=== PATIENT | female | born 1945 | race Caucasian/White ===

== ENCOUNTER 2018-03-05 18:02 | Emergency (ER) | payer MEDICARE, OTHER, SELFPAY ==
[2018-03-05 18:08] VITALS: BP 92/60; PULSE 88; RESP 22; TEMP 37.1; O2SAT 93; BMI 22.7
--- NOTE | 2018-03-05 18:29 | ED.DENTAL ---
HPI - Dental/Oral <MAGALI Collazo - Last Filed: 03/05/18 22:09> General Chief complaint: Dental/Oral Stated complaint: UNABLE TO EAT, THROAT/MOUTH PAIN, LOSING WEIGHT Time Seen by Provider: 03/05/18 18:24 Source: patient Mode of arrival: ambulatory Limitations: no limitations History of Present Illness HPI Narrative: 72-year-old female history of asthma is a nonsmoker here for complaint of having pain into her mouth over the past 3-4 weeks. She also reports having nausea and vomiting frequently over the same timeframe. She was seen at her primary care provider office for this a couple times and was also seen in the emergency room at [facility] for this. She was seen a few days ago at [facility] therapy placed her on nystatin treated her for stomatitis. She reports that her symptoms have not resolved. She reports that she has not been able to tolerate p.o. intake well she states she has lost 10 lb over the past several weeks. She denies any abdominal pain. She denies any fevers or chills. She is ambulatory into the emergency room. Related Data Previous Rx's Medication Instructions Recorded ondansetron 4 mg PO TID PRN #12 tab 03/05/18 Allergies Allergy/AdvReac Type Severity Reaction Status Date / Time Tetanus Vaccines and Toxoid Allergy Severe SWELLING Verified 03/05/18 18:07 [TETANUS VACCINES & TOXOID] AT THE SITE [place] [address] [From [facility]] Allergy Unknown CAUSES Verified 03/05/18 18:07 PAIN, SWELLING, NSTABILITY Review of Systems <MAGALI Collazo - Last Filed: 03/05/18 22:09> Constitutional Denies chills, Denies fever(s), Denies lethargy and Denies weakness Eyes Denies change in vision, Denies eye discharge, Denies irritation and Denies loss of vision ENT Ears, Nose, Mouth, and Throat: Denies change in voice, Denies neck pain and Denies sore throat Comments: Mouth pain Cardiovascular Denies chest pain, Denies irregular heart rhythm, Denies lightheadedness, Denies palpitations, Denies dyspnea, Denies dyspnea on exertion and Denies orthopnea Respiratory Denies cough, Denies dyspnea, Denies dyspnea on exertion and Denies wheezing Gastrointestinal Gastrointestinal: Denies abdominal pain, Denies change in bowel habits, Denies diarrhea, Reports nausea and Reports vomiting Genitourinary Denies hematuria, Denies flank pain, Denies urinary incontinence and Denies urinary urgency Musculoskeletal Denies neck pain Integumentary/Breasts Denies pruritus, Denies erythema, Denies rash and Denies wounds Neurologic Denies confusion, Denies loss of vision and Denies weakness Psychiatric Denies anxiety, Denies confusion, Denies depression, Denies homicidal ideation and Denies suicidal ideation Endocrine Denies palpitations Hematologic/Lymphatic Denies easy bruising Allergic/Immunologic Denies wheezing Exam <MAGALI Collazo - Last Filed: 03/05/18 22:09> Initial Vital Signs Initial Vital Signs: Vital Signs Temperature 98.7 F 03/05/18 18:08 Pulse Rate 88 03/05/18 18:08 Respiratory Rate 22 03/05/18 18:08 Blood Pressure 92/60 03/05/18 18:08 Pulse Oximetry 93 03/05/18 18:08 Const General: cooperative and well developed Nutritional Appearance: well nourished Orientation: alert, awake, oriented x3 and not confused HENWA Mouth: oral mucosae normal and moist mucous membranes Throat: posterior oropharynx normal Eyes Conjunctivae: conjunctivae normal Sclera: sclerae normal Pupils: PERRL EOM: EOM intact bilaterally GI Inspection: non-distended Palpation: soft, no hepatosplenomegaly, No guarding, No pulsatile mass and No tender Auscultation: normal bowel sounds Skin General: no rashes or lesions noted, No jaundice and No petechiae <Jese Harrison DO - Last Filed: 03/06/18 05:56> Initial Vital Signs Initial Vital Signs: Vital Signs Temperature 98.7 F 03/05/18 18:08 Pulse Rate 88 03/05/18 18:08 Respiratory Rate 22 03/05/18 18:08 Blood Pressure 92/60 03/05/18 18:08 Pulse Oximetry 93 03/05/18 18:08 Course <MAGALI Collazo - Last Filed: 03/05/18 22:09> Orders Ordered: Discontinued Medications Sodium Chloride (Normal Saline 0.9%) 1,000 mls @ 1,000 mls/hr IV BOLUS ONE Stop: 03/05/18 19:57 Last Infusion: 03/05/18 20:42 Dose: 0 mls/hr Admin: 03/05/18 19:24 Dose: 1,000 mls/hr Ondansetron HCl (Zofran) 4 mg IV NOW ONE Stop: 03/05/18 18:59 Last Admin: 03/05/18 19:24 Dose: 4 mg Vital Signs - 8 hr 03/05/18 22:00 Pulse Rate 62 Respiratory Rate 16 Blood Pressure 119/54 L Pulse Oximetry 99 <Jese Harrison DO - Last Filed: 03/06/18 05:56> Orders Ordered: Discontinued Medications Sodium Chloride (Normal Saline 0.9%) 1,000 mls @ 1,000 mls/hr IV BOLUS ONE Stop: 03/05/18 19:57 Last Infusion: 03/05/18 20:42 Dose: 0 mls/hr Admin: 03/05/18 19:24 Dose: 1,000 mls/hr Ondansetron HCl (Zofran) 4 mg IV NOW ONE Stop: 03/05/18 18:59 Last Admin: 03/05/18 19:24 Dose: 4 mg Vital Signs - 8 hr 03/05/18 22:00 Pulse Rate 62 Respiratory Rate 16 Blood Pressure 119/54 L Pulse Oximetry 99 MDM - Dental/Oral <MAGALI Collazo - Last Filed: 03/05/18 22:09> Lab Data Result diagrams: 03/05/18 19:20 03/05/18 19:20 Lab Results 03/05/18 03/05/18 03/05/18 Range/Units 19:20 19:20 19:20 WBC 9.1 (4.5-11.0) X10^3/uL RBC 5.21 H (4.0-5.2) X10^6/uL Hgb 14.6 (12.0-16.0) g/dL Hct 43.9 (36-46) % MCV 84.4 (80-100) fL MCH 28.1 (26-34) PG MCHC 33.3 (30-36) % RDW 13.1 (11.6-14.8) % Plt Count 305 (150-400) X10^3/uL Neut % (Auto) 53.2 (50-75) % Lymph % (Auto) 34.9 (25-40) % [place] % (Auto) 10.5 (3-14) % Eos % (Auto) 0.3 L (2-4) % Baso % (Auto) 1.1 (0-2) % Neut # (Auto) 4900 (8596-3131) /uL Sodium 134 L (137-145) mmol/L Potassium 4.1 (3.4-5.1) mmol/L Chloride 95 L (98-107) mmol/L Carbon Dioxide 25 (22-32) mmol/L BUN 39 H (7-17) mg/dL Creatinine 1.10 H (0.52-1.04) mg/dL Estimated GFR 49.0 L (>60) mL/min BUN/Creatinine Ratio 35.5 H (6-22) Glucose 92 (80-110) mg/dL Calcium 10.6 H (8.4-10.2) mg/dL Total Bilirubin 0.8 (0.2-1.3) mg/dL AST 20 (14-36) IU/L ALT 27 (9-52) IU/L Alkaline Phosphatase 52 (38-126) U/L Total Protein 7.3 (6.3-8.2) g/dL Albumin 4.4 (3.5-5.0) g/dL Globulin 2.9 (1.7-4.1) g/dL Albumin/Globulin Ratio 1.5 (1.0-2.8) Procalcitonin < 0.50 (<0.5) ng/mL Influenza A & B (PCR) (Negative) 03/05/18 Range/Units 19:20 WBC (4.5-11.0) X10^3/uL RBC (4.0-5.2) X10^6/uL Hgb (12.0-16.0) g/dL Hct (36-46) % MCV (80-100) fL MCH (26-34) PG MCHC (30-36) % RDW (11.6-14.8) % Plt Count (150-400) X10^3/uL Neut % (Auto) (50-75) % Lymph % (Auto) (25-40) % [place] % (Auto) (3-14) % Eos % (Auto) (2-4) % Baso % (Auto) (0-2) % Neut # (Auto) (9869-6574) /uL Sodium (137-145) mmol/L Potassium (3.4-5.1) mmol/L Chloride (98-107) mmol/L Carbon Dioxide (22-32) mmol/L BUN (7-17) mg/dL Creatinine (0.52-1.04) mg/dL Estimated GFR (>60) mL/min BUN/Creatinine Ratio (6-22) Glucose (80-110) mg/dL Calcium (8.4-10.2) mg/dL Total Bilirubin (0.2-1.3) mg/dL AST (14-36) IU/L ALT (9-52) IU/L Alkaline Phosphatase (38-126) U/L Total Protein (6.3-8.2) g/dL Albumin (3.5-5.0) g/dL Globulin (1.7-4.1) g/dL Albumin/Globulin Ratio (1.0-2.8) Procalcitonin (<0.5) ng/mL Influenza A & B (PCR) Negative (Negative) Urine Dip Bedside Urine Glucose Negative Bedside Urine Bilirubin - Negative Bedside Urine Ketone +/- 5 Urine Specific Kyle 1.015 Bedside Urine Occult Blood - Negative Bedside Urine pH 6.0 Bedside Urine Protein - Negative Bedside Urine Urobilinogen - Negative Bedside Urine Nitrite - Negative Bedside Urine Leukocytes - Negative Esterase MDM Narrative Medical decision making narrative: CBC was obtained was negative for any acute findings. Chemistry shows decreased GFR of 49. And slightly increased creatinine of 1.1. Sodium is slightly decreased at 134 and chlorides are slightly decreased at 95. Influenza swab was obtained and was negative for any acute findings. Urine dip was negative for any acute findings. Discussed case with Dr. Galdamez who was on-call for Dr. Vinson. Full follow up with patient in the next couple days for re-evaluation. [id number] Cepacol as needed for discomfort to the mouth. She is prescribed ondansetron to help with the nausea vomiting. She was able to tolerate p.o. fluid while in the emergency room after the ondansetron. She has no discomfort at this time. For any worsening symptoms return emergency room. <Jese Harrison DO - Last Filed: 03/06/18 05:56> Lab Data Lab Results 03/05/18 03/05/18 03/05/18 Range/Units 19:20 19:20 19:20 WBC 9.1 (4.5-11.0) X10^3/uL RBC 5.21 H (4.0-5.2) X10^6/uL Hgb 14.6 (12.0-16.0) g/dL Hct 43.9 (36-46) % MCV 84.4 (80-100) fL MCH 28.1 (26-34) PG MCHC 33.3 (30-36) % RDW 13.1 (11.6-14.8) % Plt Count 305 (150-400) X10^3/uL Neut % (Auto) 53.2 (50-75) % Lymph % (Auto) 34.9 (25-40) % [place] % (Auto) 10.5 (3-14) % Eos % (Auto) 0.3 L (2-4) % Baso % (Auto) 1.1 (0-2) % Neut # (Auto) 4900 (4313-3051) /uL Sodium 134 L (137-145) mmol/L Potassium 4.1 (3.4-5.1) mmol/L Chloride 95 L (98-107) mmol/L Carbon Dioxide 25 (22-32) mmol/L BUN 39 H (7-17) mg/dL Creatinine 1.10 H (0.52-1.04) mg/dL Estimated GFR 49.0 L (>60) mL/min BUN/Creatinine Ratio 35.5 H (6-22) Glucose 92 (80-110) mg/dL Calcium 10.6 H (8.4-10.2) mg/dL Total Bilirubin 0.8 (0.2-1.3) mg/dL AST 20 (14-36) IU/L ALT 27 (9-52) IU/L Alkaline Phosphatase 52 (38-126) U/L Total Protein 7.3 (6.3-8.2) g/dL Albumin 4.4 (3.5-5.0) g/dL Globulin 2.9 (1.7-4.1) g/dL Albumin/Globulin Ratio 1.5 (1.0-2.8) Procalcitonin < 0.50 (<0.5) ng/mL Influenza A & B (PCR) (Negative) 03/05/18 Range/Units 19:20 WBC (4.5-11.0) X10^3/uL RBC (4.0-5.2) X10^6/uL Hgb (12.0-16.0) g/dL Hct (36-46) % MCV (80-100) fL MCH (26-34) PG MCHC (30-36) % RDW (11.6-14.8) % Plt Count (150-400) X10^3/uL Neut % (Auto) (50-75) % Lymph % (Auto) (25-40) % [place] % (Auto) (3-14) % Eos % (Auto) (2-4) % Baso % (Auto) (0-2) % Neut # (Auto) (3958-1359) /uL Sodium (137-145) mmol/L Potassium (3.4-5.1) mmol/L Chloride (98-107) mmol/L Carbon Dioxide (22-32) mmol/L BUN (7-17) mg/dL Creatinine (0.52-1.04) mg/dL Estimated GFR (>60) mL/min BUN/Creatinine Ratio (6-22) Glucose (80-110) mg/dL Calcium (8.4-10.2) mg/dL Total Bilirubin (0.2-1.3) mg/dL AST (14-36) IU/L ALT (9-52) IU/L Alkaline Phosphatase (38-126) U/L Total Protein (6.3-8.2) g/dL Albumin (3.5-5.0) g/dL Globulin (1.7-4.1) g/dL Albumin/Globulin Ratio (1.0-2.8) Procalcitonin (<0.5) ng/mL Influenza A & B (PCR) Negative (Negative) Urine Dip Bedside Urine Glucose Negative Bedside Urine Bilirubin - Negative Bedside Urine Ketone +/- 5 Urine Specific Kyle 1.015 Bedside Urine Occult Blood - Negative Bedside Urine pH 6.0 Bedside Urine Protein - Negative Bedside Urine Urobilinogen - Negative Bedside Urine Nitrite - Negative Bedside Urine Leukocytes - Negative Esterase Discharge Plan Departure Patient Disposition: Home Clinical Impression: Acute pain of mouth Discharge Date/Time: 03/05/18 22:07 Interventions: ED Discharge Assessment Last Done: 03/05/18 22:00 Instructions: DI for Mouth Pain Activity Restrictions/Additional Instructions: Laboratory results today show decreased in kidney function this is most likely due to not drinking enough fluids. Other laboratory results today were unremarkable. Discussed case with your primary care office will follow up with you on Wednesday for further evaluation. Use Cepacol lozenges as needed for discomfort to the mouth. Use ondansetron as needed for nausea vomiting to help with hydration. Plenty of fluids. Slowly advance diet as tolerated. Call your primary care office on Wednesday morning to schedule follow-up appointment that day. For any worsening symptoms return to the emergency room. Prescriptions: New ondansetron 4 mg tablet,disintegrating 4 mg PO TID PRN (Reason: nausea and vomiting) Qty: 12 RF: 0 Referrals: Nicky Vinson DO [Primary Care Provider] - <Jese Harrison DO - Last Filed: 03/06/18 05:56> [facility] Attending [facility] Attestation: I was immediately available in the department for consultation. Documentation has been reviewed. I agree with assessment and plan.
[2018-03-05 19:01] VITALS: BP 113/52; PULSE 65; RESP 20; O2SAT 100
[2018-03-05] MEDS: SODIUM CHLORIDE 0.9% 1,000 ML 1000 ML IV (19:24)
[2018-03-05] MEDS: ONDANSETRON 4 MG/2 ML INJ IV (19:24)
[2018-03-05 19:30] LABS: Add Manual Diff / Slide Review NO; Basophils Percent Auto 1.1 % (0-2); Eosinophils Percent Auto 0.3 % (2-4); Hematocrit 43.9 % (36-46); Hemoglobin 14.6 g/dL (12.0-16.0); Lymphocytes Percent Auto 34.9 % (25-40); Mean Corpuscular HGB Conc 33.3 % (30-36); Mean Corpuscular Hemoglobin 28.1 PG (26-34); Mean Corpuscular Volume 84.4 fL (80-100); Monocytes Percent Auto 10.5 % (3-14); Neutrophils Absolute Auto 4900 /uL (3000-5900); Neutrophils Percent Auto 53.2 % (50-75); Platelet Count 305 X10^3/uL (150-400); Red Blood Cell Count 5.21 X10^6/uL (4.0-5.2); Red Cell Distribution Width 13.1 % (11.6-14.8); White Blood Cell Count 9.1 X10^3/uL (4.5-11.0)
[2018-03-05 19:42] LABS: Alanine Aminotransferase 27 IU/L (9-52); Albumin 4.4 g/dL (3.5-5.0); Albumin Globulin Ratio 1.5 (1.0-2.8); Alkaline Phosphatase 52 U/L (38-126); Aspartate Aminotransferase 20 IU/L (14-36); BUN Creatinine Ratio 35.5 (6-22); Bilirubin Total 0.8 mg/dL (0.2-1.3); Blood Urea Nitrogen 39 mg/dL (7-17); Calcium 10.6 mg/dL (8.4-10.2); Carbon Dioxide 25 mmol/L (22-32); Chloride 95 mmol/L (98-107); Globulin 2.9 g/dL (1.7-4.1); Glucose 92 mg/dL (80-110); HEMOLYSIS < 15 (0-50); Potassium 4.1 mmol/L (3.4-5.1); Sodium 134 mmol/L (137-145); Total Protein 7.3 g/dL (6.3-8.2)
[2018-03-05 19:50] LABS: Influenza A and B by PCR Rapid Negative (Negative)
[2018-03-05 20:00] VITALS: BP 115/49; PULSE 61; O2SAT 100
[2018-03-05 20:11] LABS: Procalcitonin < 0.50 ng/mL (<0.5)
[2018-03-05 21:00] VITALS: BP 119/54; PULSE 66; O2SAT 100
--- NOTE | 2018-03-05 21:24 | PC.NURSE ---
Pt tolerated 8 oz of grape juice
[2018-03-05 22:00] VITALS: BP 119/54; PULSE 62; RESP 16; O2SAT 99
== END 2018-03-05 22:07 | disposition home or self-care (01) ==
PROVIDERS: Emergency Provider Nurse Practitioner Family; PCP Family Medicine
DX: K13.79 Other lesions of oral mucosa (principal)
CPT/HCPCS: 36591; 80053; 81003; 84145; 85025; 87400; 96361; 96374; 99283; 99284; J2405

== ENCOUNTER 2018-05-20 14:07 | Observation (INO) | payer MEDICARE, OTHER, SELFPAY ==
[2018-05-20 14:40] VITALS: BP 109/43; PULSE 82; RESP 20; TEMP 36.8; O2SAT 98; BMI 30.5
[2018-05-20 15:12] LABS: Prothrombin Time 11.9 SECONDS (10.1-12.7)
[2018-05-20 15:14] LABS: PTT Partial Thromboplastin Tim 26 SECONDS (26.4-36.2)
[2018-05-20 15:15] LABS: Add Manual Diff / Slide Review NO; Basophils Absolute Auto 0 /uL (0-100); Basophils Percent Auto 0.2 % (0-2); Eosinophils Absolute Auto 0 /uL (0-450); Eosinophils Percent Auto 0.1 % (2-4); Hematocrit 40.9 % (36-46); Hemoglobin 13.7 g/dL (12.0-16.0); Lymphocytes Absolute Auto 1500 /uL (1100-4500); Lymphocytes Percent Auto 7.5 % (25-40); Mean Corpuscular HGB Conc 33.4 % (30-36); Mean Corpuscular Hemoglobin 28.8 PG (26-34); Mean Corpuscular Volume 86.3 fL (80-100); Monocytes Absolute Auto 1600 /uL (0-900); Monocytes Percent Auto 8.2 % (3-14); Neutrophils Absolute Auto 16400 /uL (1500-7000); Platelet Count 233 X10^3/uL (150-400); Red Blood Cell Count 4.74 X10^6/uL (4.0-5.2); Red Cell Distribution Width 14.2 % (11.6-14.8); White Blood Cell Count 19.5 X10^3/uL (4.5-11.0)
[2018-05-20 15:16] LABS: Alanine Aminotransferase 39 IU/L (9-52); Albumin Globulin Ratio 1.5 (1.0-2.8); Alkaline Phosphatase 95 U/L (38-126); Aspartate Aminotransferase 32 IU/L (14-36); Bilirubin Total 0.9 mg/dL (0.2-1.3); Blood Urea Nitrogen 21 mg/dL (7-17); Carbon Dioxide 24 mmol/L (22-32); Chloride 96 mmol/L (98-107); Estimated Glomerular Filt Rate 54.5 mL/min (>60); Globulin 2.7 g/dL (1.7-4.1); Glucose 128 mg/dL (80-110); HEMOLYSIS < 15 (0-50); Lipase 20 U/L (23-300); Potassium 3.8 mmol/L (3.4-5.1); Sodium 134 mmol/L (137-145); Total Protein 6.7 g/dL (6.3-8.2)
[2018-05-20] MEDS: ONDANSETRON 4 MG/2 ML INJ IV (15:16)
--- NOTE | 2018-05-20 15:21 | DI.RAD.S_ITS ---
PROCEDURE: XR ACUTE ABDOMEN SERIES INDICATIONS: abd pain, N/V/D TECHNIQUE: One view chest and two views of the abdomen were acquired. COMPARISON: None. FINDINGS: Surgical changes and devices: None. Chest: The cardiac contours are within normal limits. The aorta demonstrates calcification and tortuosity.Heart size is normal. No pleural effusions. No pneumoperitoneum. Abdomen: Bowel gas pattern is normal. No suspicious calcifications. Visualized solid organ contours appear normal. Bones: No suspicious bony lesions. Age-appropriate bony degenerative changes are seen. IMPRESSION: A nonobstructive bowel gas pattern is seen. As clinically appropriate, please consider a repeat plain film study or a dedicated CT of the abdomen and pelvis, if the patient's symptoms persist or worsen. Dictated by: Vladimir Peraza M.D. on 05/20/2018 at 14:44 Approved by: Vladimir Peraza M.D. on 05/20/2018 at 14:45
[2018-05-20] MEDS: SODIUM CHLORIDE 0.9% 1,000 ML 1000 ML IV (15:47)
--- NOTE | 2018-05-20 16:28 | ED.NAVMDI ---
HPI - Nausea/Vomiting/Diarrhea <MAGALI Collazo - Last Filed: 05/20/18 22:14> General Chief complaint: Nausea/Vomiting/Diarrhea Stated complaint: N/V/D Time Seen by Provider: 05/20/18 16:21 Source: patient Mode of arrival: ambulatory Limitations: no limitations History of Present Illness HPI Narrative: 73-year-old female with history of hypertension and hypo thyroidism here for complaint of having nausea vomiting and diarrhea that started yesterday. She reports that she had several episodes of vomiting last night and also several episodes of diarrhea. She reports that during her episodes of vomiting she had a few episodes of syncopal episodes where she lost unconsciousness for a few months she denies any head injury. No fevers or chills. She denies any contacts or family having same symptoms. She states that her diarrhea has had blood in it. Last diarrhea was last night. She denies any diarrhea today. She denies any recent nausea and vomiting. She was able to tolerate some fluids today. She reports generalized abdominal discomfort. She denies any flank pain. She denies any urinary symptoms. MD complaint: vomiting and diarrhea Related Data Home Medications Medication Instructions Recorded Confirmed albuterol sulfate [ProAir HFA] 1 puff INHALATION PRN PRN 05/20/18 05/20/18 cholecalciferol (vitamin D3) 2,000 unit PO DAILY 05/20/18 05/20/18 [Vitamin D3] diltiazem HCl 180 mg PO BID 05/20/18 05/20/18 fluticasone-salmeterol [Advair 1 puff INHALATION BID PRN 05/20/18 05/20/18 Diskus] lisinopril-hydrochlorothiazide 1 tab PO DAILY 05/20/18 05/20/18 loratadine 10 mg PO DAILY 05/20/18 05/20/18 montelukast 10 mg PO QPM 05/20/18 05/20/18 naproxen 500 mg PO BID 05/20/18 05/20/18 simvastatin 20 mg PO DAILY 05/20/18 05/20/18 Allergies Allergy/AdvReac Type Severity Reaction Status Date / Time Tetanus Vaccines and Toxoid Allergy Severe SWELLING Verified 03/05/18 18:07 [TETANUS VACCINES & TOXOID] AT THE SITE kira G-Fred 20 [From [facility]] Allergy Unknown CAUSES Verified 03/05/18 18:07 PAIN, SWELLING, NSTABILITY Review of Systems <MAGALI Collazo - Last Filed: 05/20/18 22:14> Constitutional Denies chills, Denies fatigue, Denies fever(s), Denies lethargy and Denies weakness Eyes Denies change in vision, Denies eye discharge, Denies irritation and Denies loss of vision ENT Ears, Nose, Mouth, and Throat: Denies change in voice, Denies neck pain and Denies sore throat Cardiovascular Reports syncope, Denies dyspnea and Denies dyspnea on exertion Respiratory Denies cough, Denies dyspnea, Denies dyspnea on exertion and Denies wheezing Gastrointestinal Gastrointestinal: Reports abdominal pain, Reports diarrhea, Reports nausea and Reports vomiting Genitourinary Denies hematuria, Denies flank pain, Denies urinary incontinence and Denies urinary urgency Musculoskeletal Denies neck pain Integumentary/Breasts Denies pruritus, Denies erythema, Denies rash and Denies wounds Neurologic Denies confusion, Reports syncope, Denies loss of vision and Denies weakness Psychiatric Denies anxiety, Denies confusion, Denies depression, Denies homicidal ideation and Denies suicidal ideation Endocrine Denies fatigue and Denies flushing Hematologic/Lymphatic Denies easy bruising Allergic/Immunologic Denies wheezing PFSH <MAGALI Collazo - Last Filed: 05/20/18 22:14> Social History household members: spouse and family Smoking Status: Never smoker alcohol intake: never Exam <MAGALI Collazo - Last Filed: 05/20/18 22:14> Initial Vital Signs Initial Vital Signs: Vital Signs Temperature 98.2 F 05/20/18 14:40 Pulse Rate 82 05/20/18 14:40 Respiratory Rate 20 05/20/18 14:40 Blood Pressure 109/43 L 05/20/18 14:40 Pulse Oximetry 98 05/20/18 14:40 Const General: cooperative and well developed Nutritional Appearance: well nourished Orientation: alert, awake, oriented x3 and not confused HENMT Mouth: oral mucosae normal and moist mucous membranes Eyes Conjunctivae: conjunctivae normal Sclera: sclerae normal Pupils: PERRL EOM: EOM intact bilaterally Resp Effort & Inspection: normal respiratory effort, able to speak in complete sentences, no respiratory distress and no use of accessory muscles Auscultation: clear to auscultation bilaterally, no rales, no rhonchi and no wheezes Cardio Rate: regular rate Rhythm: regular rhythm Heart Sounds: no click, no gallops, no murmurs and no rubs GI Inspection: non-distended Palpation: soft, no hepatosplenomegaly, No guarding, No pulsatile mass and tender ( Generalized tenderness) Auscultation: normal bowel sounds General: No CVA tenderness Skin General: no rashes or lesions noted, No jaundice and No petechiae Neuro General: alert, oriented x3, gait normal and no focal motor deficits Speech: speech normal <Hu Sanchez DO - Last Filed: 05/20/18 23:32> Initial Vital Signs Initial Vital Signs: Vital Signs Temperature 98.2 F 05/20/18 14:40 Pulse Rate 82 05/20/18 14:40 Respiratory Rate 20 05/20/18 14:40 Blood Pressure 109/43 L 05/20/18 14:40 Pulse Oximetry 98 05/20/18 14:40 Course <MAGALI Collazo - Last Filed: 05/20/18 22:14> Orders Ordered: ED Orders 05/20/18 14:45 EKG-12 Lead Stat 05/20/18 14:55 Complete Blood Count AUTO DIFF Stat Comprehensive Metabolic Panel Stat Lipase Stat Partial Thromboplastin Time Stat Prothrombin Time INR Stat Troponin & CK Cardiac Panel Stat 05/20/18 15:21 XR acute abdomen series Stat 05/20/18 16:38 CT abdomen pelvis w con Stat CT head/brain wo con Stat 05/20/18 16:42 GI Panel (Film Array) Stat 05/20/18 20:22 Consult to Discharge Planning Routine 05/21/18 06:00 Basic Metabolic Panel DAILY Magnesium DAILY 05/22/18 06:00 Basic Metabolic Panel DAILY Acetaminophen (Tylenol) 650 mg PO Q6HR PRN PRN Reason: As Needed for Fever/Mild Pain Sodium Chloride (Normal Saline 0.9%) 1,000 mls @ 1,000 mls/hr IV BOLUS PRN PRN Reason: Fluid replacement Last Infusion: 05/20/18 17:01 Dose: 0 mls/hr Admin: 05/20/18 15:47 Dose: 1,000 mls/hr Ciprofloxacin (Cipro) 400 mg in 200 mls @ 200 mls/hr IV NOW [facility] Last Infusion: 05/20/18 20:42 Dose: 0 mls/hr Admin: 05/20/18 19:49 Dose: 200 mls/hr Metronidazole (Flagyl) 500 mg in 100 mls @ 100 mls/hr IV Q8H [facility] Last Admin: 05/20/18 21:55 Dose: 100 mls/hr Sodium Chloride (Normal Saline 0.9%) 1,000 mls @ 100 mls/hr IV CONT [facility] Last Admin: 05/20/18 21:55 Dose: 100 mls/hr Ondansetron HCl (Zofran) 4 mg IV Q8HR PRN PRN Reason: Nausea And Vomiting Discontinued Medications Ondansetron HCl (Zofran) 4 mg IV NOW ONE Stop: 05/20/18 15:15 Last Admin: 05/20/18 15:16 Dose: 4 mg Vital Signs - 8 hr 05/20/18 20:25 05/20/18 20:34 05/20/18 20:50 Temperature 98.5 F Pulse Rate 80 87 81 Respiratory Rate 23 18 18 Blood Pressure 125/60 123/61 Blood Pressure [Right Arm] 125/58 L Pulse Oximetry 91 98 97 05/20/18 22:06 Temperature Pulse Rate Respiratory Rate Blood Pressure Blood Pressure [Right Arm] Pulse Oximetry 95 <Hu Sanchez DO - Last Filed: 05/20/18 23:32> Orders Ordered: ED Orders 05/20/18 14:45 EKG-12 Lead Stat 05/20/18 14:55 Complete Blood Count AUTO DIFF Stat Comprehensive Metabolic Panel Stat Lipase Stat Partial Thromboplastin Time Stat Prothrombin Time INR Stat Troponin & CK Cardiac Panel Stat 05/20/18 15:21 XR acute abdomen series Stat 05/20/18 16:38 CT abdomen pelvis w con Stat CT head/brain wo con Stat 05/20/18 16:42 GI Panel (Film Array) Stat 05/20/18 20:22 Consult to Discharge Planning Routine 05/21/18 06:00 Basic Metabolic Panel DAILY Magnesium DAILY 05/22/18 06:00 Basic Metabolic Panel DAILY Acetaminophen (Tylenol) 650 mg PO Q6HR PRN PRN Reason: As Needed for Fever/Mild Pain Sodium Chloride (Normal Saline 0.9%) 1,000 mls @ 1,000 mls/hr IV BOLUS PRN PRN Reason: Fluid replacement Last Infusion: 05/20/18 17:01 Dose: 0 mls/hr Admin: 05/20/18 15:47 Dose: 1,000 mls/hr Ciprofloxacin (Cipro) 400 mg in 200 mls @ 200 mls/hr IV NOW [facility] Last Infusion: 05/20/18 20:42 Dose: 0 mls/hr Admin: 05/20/18 19:49 Dose: 200 mls/hr Metronidazole (Flagyl) 500 mg in 100 mls @ 100 mls/hr IV Q8H [facility] Last Admin: 05/20/18 21:55 Dose: 100 mls/hr Sodium Chloride (Normal Saline 0.9%) 1,000 mls @ 100 mls/hr IV CONT [facility] Last Admin: 05/20/18 21:55 Dose: 100 mls/hr Ondansetron HCl (Zofran) 4 mg IV Q8HR PRN PRN Reason: Nausea And Vomiting Discontinued Medications Ondansetron HCl (Zofran) 4 mg IV NOW ONE Stop: 05/20/18 15:15 Last Admin: 05/20/18 15:16 Dose: 4 mg Vital Signs - 8 hr 05/20/18 20:25 05/20/18 20:34 05/20/18 20:50 Temperature 98.5 F Pulse Rate 80 87 81 Respiratory Rate 23 18 18 Blood Pressure 125/60 123/61 Blood Pressure [Right Arm] 125/58 L Pulse Oximetry 91 98 97 05/20/18 22:06 Temperature Pulse Rate Respiratory Rate Blood Pressure Blood Pressure [Right Arm] Pulse Oximetry 95 MDM - Nausea/Vomiting/Diarrhea <MAGALI Collazo - Last Filed: 05/20/18 22:14> Lab Data Result diagrams: 05/20/18 14:55 05/20/18 14:55 Lab Results 05/20/18 05/20/18 05/20/18 Range/Units 14:55 14:55 14:55 WBC 19.5 H (4.5-11.0) X10^3/uL RBC 4.74 (4.0-5.2) X10^6/uL Hgb 13.7 (12.0-16.0) g/dL Hct 40.9 (36-46) % MCV 86.3 (80-100) fL MCH 28.8 (26-34) PG MCHC 33.4 (30-36) % RDW 14.2 (11.6-14.8) % Plt Count 233 (150-400) X10^3/uL Neut % (Auto) 84.0 H (50-75) % Lymph % (Auto) 7.5 L (25-40) % [place] % (Auto) 8.2 (3-14) % Eos % (Auto) 0.1 L (2-4) % Baso % (Auto) 0.2 (0-2) % Neut # (Auto) 79174 H (2323-8390) /uL Lymph # (Auto) 1500 (5389-5175) /uL Austin # (Auto) 1600 H (0-900) /uL Eos # (Auto) 0 (0-450) /uL Baso # (Auto) 0 (0-100) /uL PT 11.9 (10.1-12.7) SECONDS INR 1.0 (0.9-1.3) APTT 26 L (26.4-36.2) SECONDS Sodium 134 L (137-145) mmol/L Potassium 3.8 (3.4-5.1) mmol/L Chloride 96 L (98-107) mmol/L Carbon Dioxide 24 (22-32) mmol/L BUN 21 H (7-17) mg/dL Creatinine 1.00 (0.52-1.04) mg/dL Estimated GFR 54.5 L (>60) mL/min BUN/Creatinine Ratio 21.0 (6-22) Glucose 128 H (80-110) mg/dL Calcium 10.0 (8.4-10.2) mg/dL Total Bilirubin 0.9 (0.2-1.3) mg/dL AST 32 (14-36) IU/L ALT 39 (9-52) IU/L Alkaline Phosphatase 95 (38-126) U/L Total Creatine Kinase (30-135) U/L CK-MB (CK-2) CK-MB (CK-2) Rel Index Troponin I (0.01-0.034) ng/mL Total Protein 6.7 (6.3-8.2) g/dL Albumin 4.0 (3.5-5.0) g/dL Globulin 2.7 (1.7-4.1) g/dL Albumin/Globulin Ratio 1.5 (1.0-2.8) Lipase 20 L (23-300) U/L 05/20/18 Range/Units 14:55 WBC (4.5-11.0) X10^3/uL RBC (4.0-5.2) X10^6/uL Hgb (12.0-16.0) g/dL Hct (36-46) % MCV (80-100) fL MCH (26-34) PG MCHC (30-36) % RDW (11.6-14.8) % Plt Count (150-400) X10^3/uL Neut % (Auto) (50-75) % Lymph % (Auto) (25-40) % Austin % (Auto) (3-14) % Eos % (Auto) (2-4) % Baso % (Auto) (0-2) % Neut # (Auto) (5305-6347) /uL Lymph # (Auto) (6254-8523) /uL Austin # (Auto) (0-900) /uL Eos # (Auto) (0-450) /uL Baso # (Auto) (0-100) /uL PT (10.1-12.7) SECONDS INR (0.9-1.3) APTT (26.4-36.2) SECONDS Sodium (137-145) mmol/L Potassium (3.4-5.1) mmol/L Chloride (98-107) mmol/L Carbon Dioxide (22-32) mmol/L BUN (7-17) mg/dL Creatinine (0.52-1.04) mg/dL Estimated GFR (>60) mL/min BUN/Creatinine Ratio (6-22) Glucose (80-110) mg/dL Calcium (8.4-10.2) mg/dL Total Bilirubin (0.2-1.3) mg/dL AST (14-36) IU/L ALT (9-52) IU/L Alkaline Phosphatase (38-126) U/L Total Creatine Kinase 28 L (30-135) U/L CK-MB (CK-2) TNP CK-MB (CK-2) Rel Index TNP Troponin I < 0.012 (0.01-0.034) ng/mL Total Protein (6.3-8.2) g/dL Albumin (3.5-5.0) g/dL Globulin (1.7-4.1) g/dL Albumin/Globulin Ratio (1.0-2.8) Lipase (23-300) U/L Imaging Data CT scan - abdomen: Radiologist's impression: [address] [address] [address] Scan Report Signed Patient: Armando Fonseca EMR#: [id number] : 6Acct:[id number] Age/Sex: 73 / FDate of Service: 05/20/18 Loc: ED Accession Number: [id number] Procedure: CT abdomen pelvis w con Ordering Provider: Jose Stoddard PROCEDURE: CT ABDOMEN PELVIS W CON INDICATIONS: generalized abdominal pain with bloody diarrhea TECHNIQUE: After the administration of intravenous contrast, 5 mm thick sections acquired from the diaphragm to the symphysis. 5 mm coronal and sagittal reformats were acquired. For radiation dose reduction, the following was used: automated exposure control, adjustment of mA and/or kV according to patient size. COMPARISON: None. FINDINGS: Image quality: Excellent. ABDOMEN: Lung bases: Lung bases are clear. Heart size is normal. Solid organs: Liver is normal in size and enhancement. Gallbladder negative. Biliary system is non dilated. Pancreas enhances normally. Spleen is normal in size and enhancement. No adrenal nodules. Kidneys demonstrate normal size and enhancement, without hydronephrosis. Peritoneum and bowel: Diffuse colonic wall thickening primarily involving the transverse distal colon with mild adjacent plantar fat stranding. There is trace fluid and stranding seen within the left paracolic gutter. Numerous sigmoid colonic diverticula are present however no definite acute diverticulitis. Rectum is grossly unremarkable. The appendix is within normal limits No free air. Nodes and vessels: No retroperitoneal or mesenteric adenopathy by size criteria. Aorta and inferior vena cava are normal in size. Miscellaneous: No ventral hernias. PELVIS: Genitourinary: Bladder wall is mildly thickened circumferentially, technically age-indeterminate. Focal fat attenuation seen in the region of the uterus raising possibility of lipoleiomyoma, technically non-specific Miscellaneous: No inguinal hernias or adenopathy. Bones: No suspicious bony lesions. No vertebral body compression fractures. Diffuse degenerative disease and multilevel spondylolisthesis of lumbar spine IMPRESSION: Diffuse colonic wall thickening with adjacent inflammatory changes most likely representing infectious or inflammatory pancolitis. No abscess seen. Recommend clinical laboratory correlation. Normal appendix. Sigmoid diverticulosis however no evidence of acute diverticulitis Mild circumferential bladder wall thickening, technically age-indeterminate. Please correlate with urinalysis data. Dictated by: Denzel Serrano M.D. on 05/20/2018 at 17:33 Approved by: Denzel Serrano M.D. on 05/20/2018 at 17:38 Abdominal x-ray: Radiologist's impression: [place] [id number] XRay Report Signed Patient: Armando Fonseca EMR#: [id number] : 1945cct:[id number] Age/Sex: 73 / FDate of Service: 05/20/18 Loc: ED Accession Number: [id number] Procedure: XR acute abdomen series Ordering Provider: Maeve Edouard D.O. PROCEDURE: XR ACUTE ABDOMEN SERIES INDICATIONS: abd pain, N/V/D TECHNIQUE: One view chest and two views of the abdomen were acquired. COMPARISON: None. FINDINGS: Surgical changes and devices: None. Chest: The cardiac contours are within normal limits. The aorta demonstrates calcification and tortuosity.Heart size is normal. No pleural effusions. No pneumoperitoneum. Abdomen: Bowel gas pattern is normal. No suspicious calcifications. Visualized solid organ contours appear normal. Bones: No suspicious bony lesions. Age-appropriate bony degenerative changes are seen. IMPRESSION: A nonobstructive bowel gas pattern is seen. As clinically appropriate, please consider a repeat plain film study or a dedicated CT of the abdomen and pelvis, if the patient's symptoms persist or worsen. Dictated by: Vladimir Peraza M.D. on 05/20/2018 at 14:44 Approved by: Vladimir Peraza M.D. on 05/20/2018 at 14:45 CT scan - head: Radiologist's impression: [address] [address] [address] Scan Report Signed Patient: Armando Fonseca EMR#: [id number] : 6Acct:[id number] Age/Sex: 73 / FDate of Service: 05/20/18 Loc: ED Accession Number: [id number] Procedure: CT head/brain wo con Ordering Provider: Jose Stoddard PROCEDURE: CT HEAD/BRAIN WO CON INDICATIONS: nausea vomiting and diarrhea with syncope TECHNIQUE: Noncontrast 4.5 mm thick angled axial sections acquired from the foramen magnum to the vertex, with coronal and sagittal reformats. For radiation dose reduction, the following was used: automated exposure control, adjustment of mA and/or kV according to patient size. COMPARISON: None. FINDINGS: Image quality: Excellent. CSF spaces: Basal cisterns are patent. No extra-axial fluid collections. The ventricles are symmetric in size and shape. Brain: No intracranial bleeds or masses. There is cerebral volume loss for age, with resultant ventricular and sulcal prominence. There are periventricular and deep white matter chronic small vessel ischemic changes. There is intracranial internal carotid artery atherosclerosis. Skull and face: Calvarium and visualized facial bones appear intact, without suspicious lesions. Sinuses: Visualized sinuses and mastoids are clear. IMPRESSION: 1. No acute intracranial process. 2. Mild to moderate atrophy and chronic microvascular ischemic changes. Dictated by: Arpita Bennett M.D. on 05/20/2018 at 17:18 Approved by: Arpita Bennett M.D. on 05/20/2018 at 17:19 ECG Data Interpretation: EKG shows normal sinus rhythm with no ST elevation or depression. No ectopy. Ventricular rate of 89. Pr interval 142. QRS duration of 89. QTC of 443 MDM Narrative Medical decision making narrative: CBC was obtained shows elevated white count of 19 K. H&H was normal. CMP shows slightly decreased GFR 54.5. Sodium of 134 and chloride Lipase was unremarkable. INR was normal. CT of the head was obtained due to a syncopal episodes and was negative. EKG shows sinus rhythm with no ST elevation or depression. Cardiac enzymes were obtained and were unremarkable. Chest x-ray was negative for any acute findings. Acute abdominal series was unremarkable. Abdomen CT was obtained and shows finding suggestive of salcedo colitis. Distal exam shows melena. discussed case with Dr. Sinha recommends admission for fluids and IV antibiotics. Discussed case with hospitalist who accepted patient. Ordered stool studies for identification of infection patient was not able to give a stool sample. Also ordered urinalysis patient was not able to give urinalysis while in the emergency room. <Hu Sanchez, DO - Last Filed: 05/20/18 23:32> Lab Data Lab Results 05/20/18 05/20/18 05/20/18 Range/Units 14:55 14:55 14:55 WBC 19.5 H (4.5-11.0) X10^3/uL RBC 4.74 (4.0-5.2) X10^6/uL Hgb 13.7 (12.0-16.0) g/dL Hct 40.9 (36-46) % MCV 86.3 (80-100) fL MCH 28.8 (26-34) PG MCHC 33.4 (30-36) % RDW 14.2 (11.6-14.8) % Plt Count 233 (150-400) X10^3/uL Neut % (Auto) 84.0 H (50-75) % Lymph % (Auto) 7.5 L (25-40) % [place] % (Auto) 8.2 (3-14) % Eos % (Auto) 0.1 L (2-4) % Baso % (Auto) 0.2 (0-2) % Neut # (Auto) 15571 H (9285-2054) /uL Lymph # (Auto) 1500 (9455-2462) /uL [place] # (Auto) 1600 H (0-900) /uL Eos # (Auto) 0 (0-450) /uL Baso # (Auto) 0 (0-100) /uL PT 11.9 (10.1-12.7) SECONDS INR 1.0 (0.9-1.3) APTT 26 L (26.4-36.2) SECONDS Sodium 134 L (137-145) mmol/L Potassium 3.8 (3.4-5.1) mmol/L Chloride 96 L (98-107) mmol/L Carbon Dioxide 24 (22-32) mmol/L BUN 21 H (7-17) mg/dL Creatinine 1.00 (0.52-1.04) mg/dL Estimated GFR 54.5 L (>60) mL/min BUN/Creatinine Ratio 21.0 (6-22) Glucose 128 H (80-110) mg/dL Calcium 10.0 (8.4-10.2) mg/dL Total Bilirubin 0.9 (0.2-1.3) mg/dL AST 32 (14-36) IU/L ALT 39 (9-52) IU/L Alkaline Phosphatase 95 (38-126) U/L Total Creatine Kinase (30-135) U/L CK-MB (CK-2) CK-MB (CK-2) Rel Index Troponin I (0.01-0.034) ng/mL Total Protein 6.7 (6.3-8.2) g/dL Albumin 4.0 (3.5-5.0) g/dL Globulin 2.7 (1.7-4.1) g/dL Albumin/Globulin Ratio 1.5 (1.0-2.8) Lipase 20 L (23-300) U/L 05/20/18 Range/Units 14:55 WBC (4.5-11.0) X10^3/uL RBC (4.0-5.2) X10^6/uL Hgb (12.0-16.0) g/dL Hct (36-46) % MCV (80-100) fL MCH (26-34) PG MCHC (30-36) % RDW (11.6-14.8) % Plt Count (150-400) X10^3/uL Neut % (Auto) (50-75) % Lymph % (Auto) (25-40) % [place] % (Auto) (3-14) % Eos % (Auto) (2-4) % Baso % (Auto) (0-2) % Neut # (Auto) (6328-9608) /uL Lymph # (Auto) (7471-8423) /uL Austin # (Auto) (0-900) /uL Eos # (Auto) (0-450) /uL Baso # (Auto) (0-100) /uL PT (10.1-12.7) SECONDS INR (0.9-1.3) APTT (26.4-36.2) SECONDS Sodium (137-145) mmol/L Potassium (3.4-5.1) mmol/L Chloride (98-107) mmol/L Carbon Dioxide (22-32) mmol/L BUN (7-17) mg/dL Creatinine (0.52-1.04) mg/dL Estimated GFR (>60) mL/min BUN/Creatinine Ratio (6-22) Glucose (80-110) mg/dL Calcium (8.4-10.2) mg/dL Total Bilirubin (0.2-1.3) mg/dL AST (14-36) IU/L ALT (9-52) IU/L Alkaline Phosphatase (38-126) U/L Total Creatine Kinase 28 L (30-135) U/L CK-MB (CK-2) TNP CK-MB (CK-2) Rel Index TNP Troponin I < 0.012 (0.01-0.034) ng/mL Total Protein (6.3-8.2) g/dL Albumin (3.5-5.0) g/dL Globulin (1.7-4.1) g/dL Albumin/Globulin Ratio (1.0-2.8) Lipase (23-300) U/L Discharge Plan Departure Patient Disposition: Admitted As Inpatient Clinical Impression: Colitis Discharge Date/Time: 05/20/18 20:40 Interventions: ED Discharge Assessment Last Done: 05/20/18 20:34 Admit Date/Time: 05/20/18 19:54 Admit Provider: Ruth Palm <Hu Sanchez DO - Last Filed: 05/20/18 23:32> Cosign ED Attending Cosyanelyature Attestation: I was available for consultation during this patient's emergency department encounter
--- NOTE | 2018-05-20 16:38 | DI.CT.S_ITS ---
PROCEDURE: CT ABDOMEN PELVIS W CON INDICATIONS: generalized abdominal pain with bloody diarrhea TECHNIQUE: After the administration of intravenous contrast, 5 mm thick sections acquired from the diaphragm to the symphysis. 5 mm coronal and sagittal reformats were acquired. For radiation dose reduction, the following was used: automated exposure control, adjustment of mA and/or kV according to patient size. COMPARISON: None. FINDINGS: Image quality: Excellent. ABDOMEN: Lung bases: Lung bases are clear. Heart size is normal. Solid organs: Liver is normal in size and enhancement. Gallbladder negative. Biliary system is non dilated. Pancreas enhances normally. Spleen is normal in size and enhancement. No adrenal nodules. Kidneys demonstrate normal size and enhancement, without hydronephrosis. Peritoneum and bowel: Diffuse colonic wall thickening primarily involving the transverse distal colon with mild adjacent plantar fat stranding. There is trace fluid and stranding seen within the left paracolic gutter. Numerous sigmoid colonic diverticula are present however no definite acute diverticulitis. Rectum is grossly unremarkable. The appendix is within normal limits No free air. Nodes and vessels: No retroperitoneal or mesenteric adenopathy by size criteria. Aorta and inferior vena cava are normal in size. Miscellaneous: No ventral hernias. PELVIS: Genitourinary: Bladder wall is mildly thickened circumferentially, technically age-indeterminate. Focal fat attenuation seen in the region of the uterus raising possibility of lipoleiomyoma, technically non-specific Miscellaneous: No inguinal hernias or adenopathy. Bones: No suspicious bony lesions. No vertebral body compression fractures. Diffuse degenerative disease and multilevel spondylolisthesis of lumbar spine IMPRESSION: Diffuse colonic wall thickening with adjacent inflammatory changes most likely representing infectious or inflammatory pancolitis. No abscess seen. Recommend clinical laboratory correlation. Normal appendix. Sigmoid diverticulosis however no evidence of acute diverticulitis Mild circumferential bladder wall thickening, technically age-indeterminate. Please correlate with urinalysis data. Dictated by: Denzel Serrano M.D. on 05/20/2018 at 17:33 Approved by: Denzel Serrano M.D. on 05/20/2018 at 17:38
--- NOTE | 2018-05-20 16:38 | DI.CT.S_ITS ---
PROCEDURE: CT HEAD/BRAIN WO CON INDICATIONS: nausea vomiting and diarrhea with syncope TECHNIQUE: Noncontrast 4.5 mm thick angled axial sections acquired from the foramen magnum to the vertex, with coronal and sagittal reformats. For radiation dose reduction, the following was used: automated exposure control, adjustment of mA and/or kV according to patient size. COMPARISON: None. FINDINGS: Image quality: Excellent. CSF spaces: Basal cisterns are patent. No extra-axial fluid collections. The ventricles are symmetric in size and shape. Brain: No intracranial bleeds or masses. There is cerebral volume loss for age, with resultant ventricular and sulcal prominence. There are periventricular and deep white matter chronic small vessel ischemic changes. There is intracranial internal carotid artery atherosclerosis. Skull and face: Calvarium and visualized facial bones appear intact, without suspicious lesions. Sinuses: Visualized sinuses and mastoids are clear. IMPRESSION: 1. No acute intracranial process. 2. Mild to moderate atrophy and chronic microvascular ischemic changes. Dictated by: Arpita Bennett M.D. on 05/20/2018 at 17:18 Approved by: Arpita Bennett M.D. on 05/20/2018 at 17:19
[2018-05-20 16:55] LABS: Creatine Kinase 28 U/L (30-135)
[2018-05-20 17:08] LABS: Troponin I < 0.012 ng/mL (0.01-0.034)
--- NOTE | 2018-05-20 19:33 | ED_ITS ---
HPI - Nausea/Vomiting/Diarrhea <MAGALI Collazo - Last Filed: 05/20/18 22:14> General Chief complaint: Nausea/Vomiting/Diarrhea Stated complaint: N/V/D Time Seen by Provider: 05/20/18 16:21 Source: patient Mode of arrival: ambulatory Limitations: no limitations History of Present Illness HPI Narrative: 73-year-old female with history of hypertension and hypo thyroidism here for complaint of having nausea vomiting and diarrhea that started yesterday. She reports that she had several episodes of vomiting last night and also several episodes of diarrhea. She reports that during her e pisodes of vomiting she had a few episodes of syncopal episodes where she lost unconsciousness for a few months she denies any head injury. No fevers or chills. She denies any contacts or family having same symptoms. She states that her diarrhea has had blood in it. Last diarrhea was last night. She denies any diarrhea today. She denies any recent nausea and vomiting. She was able to tolerate some fluids today. She reports generalized abdominal discomfort. She denies any flank pain. She denies any urinary symptoms. MD complaint: vomiting and diarrhea Related Data Home Medications Medication Instructions Recorded Confirmed albuterol sulfate [ProAir HFA] 1 puff INHALATION PRN PRN 05/20/18 05/20/18 cholecalciferol (vitamin D3) 2,000 unit PO DAILY 05/20/18 05/20/18 [Vitamin D3] diltiazem HCl 180 mg PO BID 05/20/18 05/20/18 fluticasone-salmeterol [Advair 1 puff INHALATION BID PRN 05/20/18 05/20/18 Diskus] lisinopril-hydrochlorothiazide 1 tab PO DAILY 05/20/18 05/20/18 loratadine 10 mg PO DAILY 05/20/18 05/20/18 montelukast 10 mg PO QPM 05/20/18 05/20/18 naproxen 500 mg PO BID 05/20/18 05/20/18 simvastatin 20 mg PO DAILY 05/20/18 05/20/18 Allergies Allergy/AdvReac Type Severity Reaction Status Date / Time Tetanus Vaccines and Toxoid Allergy Severe SWELLING Verified 03/05/18 18:07 [TETANUS VACCINES & TOXOID] AT THE SITE kira G-Fred 20 [From Flotype] Allergy Unknown CAUSES Verified 03/05/18 18:07 PAIN, SWELLING, NSTABILITY Review of Systems <MAGALI Collazo - Last Filed: 05/20/18 22:14> Constitutional Denies chills, Denies fatigue, Denies fever(s), Denies lethargy and Denies weakness Eyes Denies change in vision, Denies eye discharge, Denies irritation and Denies loss of vision ENT Ears, Nose, Mouth, and Throat: Denies change in voice, Denies neck pain and Den ies sore throat Cardiovascular Reports syncope, Denies dyspnea and Denies dyspnea on exertion Respiratory Denies cough, Denies dyspnea, Denies dyspnea on exertion and Denies wheezing Gastrointestinal Gastrointestinal: Reports abdominal pain, Reports diarrhea, Reports nausea and Reports vomiting Genitourinary Denies hematuria, Denies flank pain, Denies urinary incontinence and Denies urinary urgency Musculoskeletal Denies neck pain Integumentary/Breasts Denies pruritus, Denies erythema, Denies rash and Denies wounds Neurologic Denies confusion, Reports syncope, Denies loss of vision and Denies weakness Psychiatric Denies anxiety, Denies confusion, Denies depression, Denies homicidal ideation and Denies suicidal ideation Endocrine Denies fatigue and Denies flushing Hematologic/Lymphatic Denies easy bruising Allergic/Immunologic Denies wheezing PFSH <MAGALI Collazo - Last Filed: 05/20/18 22:14> Social History household members: spouse and family Smoking Status: Never smoker alcohol intake: never Exam <MAGALI Collazo - Last Filed: 05/20/18 22:14> Initial Vital Signs Initial Vital Signs: Vital Signs Temperature 98.2 F 05/20/18 14:40 Pulse Rate 82 05/20/18 14:40 Respiratory Rate 20 05/20/18 14:40 Blood Pressure 109/43 L 05/20/18 14:40 Pulse Oximetry 98 05/20/18 14:40 Const General: cooperative and well developed Nutritional Appearance: well nourished Orientation: alert, awake, oriented x3 and not confused HENMT Mouth: oral mucosae normal and moist mucous membranes Eyes Conjunctivae: conjunctivae normal Sclera: sclerae normal Pupils: PERRL EOM: EOM intact bilaterally Resp Effort & Inspection: normal respiratory effort, able to speak in complete sentences, no respiratory distress and no use of accessory muscles Auscultation: clear to auscultation bilaterally, no rales, no rhonchi and no wheezes Cardio Rate: regular rate Rhythm: regular rhythm Heart Sounds: no click, no gallops, no murmurs and no rubs GI Inspection: non-distended Palpation: soft, no hepatosplenomegaly, No guarding, No pulsatile mass and tender ( Generalized tenderness) Auscultation: normal bowel sounds General: No CVA tenderness Skin General: no rashes or lesions noted, No jaundice and No petechiae Neuro General: alert, oriented x3, gait normal and no focal motor deficits Speech: speech normal <Hu Sanchez DO - Last Filed: 05/20/18 23:32> Initial Vital Signs Initial Vital Signs: Vital Signs Temperature 98.2 F 05/20/18 14:40 Pulse Rate 82 05/20/18 14:40 Respiratory Rate 20 05/20/18 14:40 Blood Pressure 109/43 L 05/20/18 14:40 Pulse Oximetry 98 05/20/18 14:40 Course <MAGALI Collazo - Last Filed: 05/20/18 22:14> Orders Ordered: ED Orders 05/20/18 14:45 EKG-12 Lead Stat 05/20/18 14:55 Complete Blood Count AUTO DIFF Stat Comprehensive Metabolic Panel Stat Lipase Stat Partial Thromboplastin Time Stat Prothrombin Time INR Stat Troponin & CK Cardiac Panel Stat 05/20/18 15:21 XR acute abdomen series Stat 05/20/18 16:38 CT abdomen pelvis w con Stat CT head/brain wo con Stat 05/20/18 16:42 GI Panel (Film Array) Stat 05/20/18 20:22 Consult to Discharge Planning Routine 05/21/18 06:00 Basic Metabolic Panel DAILY Magnesium DAILY 05/22/18 06:00 Basic Metabolic Panel DAILY Acetaminophen (Tylenol) 650 mg PO Q6HR PRN PRN Reason: As Needed for Fever/Mild Pain Sodium Chloride (Normal Saline 0.9%) 1,000 mls @ 1,000 mls/hr IV BOLUS PRN PRN Reason: Fluid replacement Last Infusion: 05/20/18 17:01 Dose: 0 mls/hr Admin: 05/20/18 15:47 Dose: 1,000 mls/hr Ciprofloxacin (Cipro) 400 mg in 200 mls @ 200 mls/hr IV NOW [facility] Last Infusion: 05/20/18 20:42 Dose: 0 mls/hr Admin: 05/20/18 19:49 Dose: 200 mls/hr Metronidazole (Flagyl) 500 mg in 100 mls @ 100 mls/hr IV Q8H [facility] Last Admin: 05/20/18 21:55 Dose: 100 mls/hr Sodium Chloride (Normal Saline 0.9%) 1,000 mls @ 100 mls/hr IV CONT [facility] Last Admin: 05/20/18 21:55 Dose: 100 mls/hr Ondansetron HCl (Zofran) 4 mg IV Q8HR PRN PRN Reason: Nausea And Vomiting Discontinued Medications Ondansetron HCl (Zofran) 4 mg IV NOW ONE Stop: 05/20/18 15:15 Last Admin: 05/20/18 15:16 Dose: 4 mg Vital Signs - 8 hr 05/20/18 20:25 05/20/18 20:34 05/20/18 20:50 Temperature 98.5 F Pulse Rate 80 87 81 Respiratory Rate 23 18 18 Blood Pressure 125/60 123/61 Blood Pressure [Right Arm] 125/58 L Pulse Oximetry 91 98 97 05/20/18 22:06 Temperature Pulse Rate Respiratory Rate Blood Pressure Blood Pressure [Right Arm] Pulse Oximetry 95 <Hu Sanchez, - Last Filed: 05/20/18 23:32> Orders Ordered: ED Orders 05/20/18 14:45 EKG-12 Lead Stat 05/20/18 14:55 Complete Blood Count AUTO DIFF Stat Comprehensive Metabolic Panel Stat Lipase Stat Partial Thromboplastin Time Stat Prothrombin Time INR Stat Troponin & CK Cardiac Panel Stat 05/20/18 15:21 XR acute abdomen series Stat 05/20/18 16:38 CT abdomen pelvis w con Stat CT head/brain wo con Stat 05/20/18 16:42 GI Panel (Film Array) Stat 05/20/18 20:22 Consult to Discharge Planning Routine 05/21/18 06:00 Basic Metabolic Panel DAILY Magnesium DAILY 05/22/18 06:00 Basic Metabolic Panel DAILY Acetaminophen (Tylenol) 650 mg PO Q6HR PRN PRN Reason: As Needed for Fever/Mild Pain Sodium Chloride (Normal Saline 0.9%) 1,000 mls @ 1,000 mls/hr IV BOLUS PRN PRN Reason: Fluid replacement Last Infusion: 05/20/18 17:01 Dose: 0 mls/hr Admin: 05/20/18 15:47 Dose: 1,000 mls/hr Ciprofloxacin (Cipro) 400 mg in 200 mls @ 200 mls/hr IV NOW [facility] Last Infusion: 05/20/18 20:42 Dose: 0 mls/hr Admin: 05/20/18 19:49 Dose: 200 mls/hr Metronidazole (Flagyl) 500 mg in 100 mls @ 100 mls/hr IV Q8H [facility] Last Admin: 05/20/18 21:55 Dose: 100 mls/hr Sodium Chloride (Normal Saline 0.9%) 1,000 mls @ 100 mls/hr IV CONT [facility] Last Admin: 05/20/18 21:55 Dose: 100 mls/hr Ondansetron HCl (Zofran) 4 mg IV Q8HR PRN PRN Reason: Nausea And Vomiting Discontinued Medications Ondansetron HCl (Zofran) 4 mg IV NOW ONE Stop: 05/20/18 15:15 Last Admin: 05/20/18 15:16 Dose: 4 mg Vital Signs - 8 hr 05/20/18 20:25 05/20/18 20:34 05/20/18 20:50 Temperature 98.5 F Pulse Rate 80 87 81 Respiratory Rate 23 18 18 Blood Pressure 125/60 123/61 Blood Pressure [Right Arm] 125/58 L Pulse Oximetry 91 98 97 05/20/18 22:06 Temperature Pulse Rate Respiratory Rate Blood Pressure Blood Pressure [Right Arm] Pulse Oximetry 95 MDM - Nausea/Vomiting/Diarrhea <MAGALI Collazo - Last Filed: 05/20/18 22:14> Lab Data Result diagrams: 05/20/18 14:55 05/20/18 14:55 Lab Results 05/20/18 05/20/18 05/20/18 Range/Units 14:55 14:55 14:55 WBC 19.5 H (4.5-11.0) X10^3/uL RBC 4.74 (4.0-5.2) X10^6/uL Hgb 13.7 (12.0-16.0) g/dL Hct 40.9 (36-46) % MCV 86.3 (80-100) fL MCH 28.8 (26-34) PG MCHC 33.4 (30-36) % RDW 14.2 (11.6-14.8) % Plt Count 233 (150-400) X10^3/uL Neut % (Auto) 84.0 H (50-75) % Lymph % (Auto) 7.5 L (25-40) % [place] % (Auto) 8.2 (3-14) % Eos % (Auto) 0.1 L (2-4) % Baso % (Auto) 0.2 (0-2) % Neut # (Auto) 13441 H (0632-6713) /uL Lymph # (Auto) 1500 (3633-5860) /uL [place] # (Auto) 1600 H (0-900) /uL Eos # (Auto) 0 (0-450) /uL Baso # (Auto) 0 (0-100) /uL PT 11.9 (10.1-12.7) SECONDS INR 1.0 (0.9-1.3) APTT 26 L (26.4-36.2) SECONDS Sodium 134 L (137-145) mmol/L Potassium 3.8 (3.4-5.1) mmol/L Chloride 96 L (98-107) mmol/L Carbon Dioxide 24 (22-32) mmol/L BUN 21 H (7-17) mg/dL Creatinine 1.00 (0.52-1.04) mg/dL Estimated GFR 54.5 L (>60) mL/min BUN/Creatinine Ratio 21.0 (6-22) Glucose 128 H (80-110) mg/dL Calcium 10.0 (8.4-10.2) mg/dL Total Bilirubin 0.9 (0.2-1.3) mg/dL AST 32 (14-36) IU/L ALT 39 (9-52) IU/L Alkaline Phosphatase 95 (38-126) U/L Total Creatine Kinase (30-135) U/L CK-MB (CK-2) CK-MB (CK-2) Rel Index Troponin I (0.01-0.034) ng/mL Total Protein 6.7 (6.3-8.2) g/dL Albumin 4.0 (3.5-5.0) g/dL Globulin 2.7 (1.7-4.1) g/dL Albumin/Globulin Ratio 1.5 (1.0-2.8) Lipase 20 L (23-300) U/L 05/20/18 Range/Units 14:55 WBC (4.5-11.0) X10^3/uL RBC (4.0-5.2) X10^6/uL Hgb (12.0-16.0) g/dL Hct (36-46) % MCV (80-100) fL MCH (26-34) PG MCHC (30-36) % RDW (11.6-14.8) % Plt Count (150-400) X10^3/uL Neut % (Auto) (50-75) % Lymph % (Auto) (25-40) % [place] % (Auto) (3-14) % Eos % (Auto) (2-4) % Baso % (Auto) (0-2) % Neut # (Auto) (8354-3702) /uL Lymph # (Auto) (1625-1965) /uL [place] # (Auto) (0-900) /uL Eos # (Auto) (0-450) /uL Baso # (Auto) (0-100) /uL PT (10.1-12.7) SECONDS INR (0.9-1.3) APTT (26.4-36.2) SECONDS Sodium (137-145) mmol/L Potassium (3.4-5.1) mmol/L Chloride (98-107) mmol/L Carbon Dioxide (22-32) mmol/L BUN (7-17) mg/dL Creatinine (0.52-1.04) mg/dL Estimated GFR (>60) mL/min BUN/Creatinine Ratio (6-22) Glucose (80-110) mg/dL Calcium (8.4-10.2) mg/dL Total Bilirubin (0.2-1.3) mg/dL AST (14-36) IU/L ALT (9-52) IU/L Alkaline Phosphatase (38-126) U/L Total Creatine Kinase 28 L (30-135) U/L CK-MB (CK-2) TNP CK-MB (CK-2) Rel Index TNP Troponin I < 0.012 (0.01-0.034) ng/mL Total Protein (6.3-8.2) g/dL Albumin (3.5-5.0) g/dL Globulin (1.7-4.1) g/dL Albumin/Globulin Ratio (1.0-2.8) Lipase (23-300) U/L Imaging Data CT scan - abdomen: Radiologist's impression: [address] [address] [address] Scan Report Signed Patient: Armando Fonseca EMR#: [id number] : 6Acct:[id number] Age/Sex: 73 / FDate of Service: 05/20/18 Loc: ED Accession Number: [id number] Procedure: CT abdomen pelvis w con Ordering Provider: Jose Stoddard PROCEDURE: CT ABDOMEN PELVIS W CON INDICATIONS: generalized abdominal pain with bloody diarrhea TECHNIQUE: After the administration of intravenous contrast, 5 mm thick sections acquired from the diaphragm to the symphysis. 5 mm coronal and sagittal reformats were acquired. For radiation dose reduction, the following was used: automated exposure control, adjustment of mA and/or kV according to patient size. COMPARISON: None. FINDINGS: Image quality: Excellent. ABDOMEN: Lung bases: Lung bases are clear. Heart size is normal. Solid organs: Liver is normal in size and enhancement. Gallbladder negative. Biliary system is non dilated. Pancreas enhances normally. Spleen is normal in size and enhancement. No adrenal nodules. Kidneys demonstrate normal size and enhancement, without hydronephrosis. Peritoneum and bowel: Diffuse colonic wall thickening primarily involving the transverse distal colon with mild adjacent plantar fat stranding. There is trace fluid and stranding seen within the left paracolic gutter. Numerous sigmoid colonic diverticula are present however no definite acute diverticulitis. Rectum is grossly unremarkable. The appendix is within normal limits No free air. Nodes and vessels: No retroperitoneal or mesenteric adenopathy by size criteria. Aorta and inferior vena cava are normal in size. Miscellaneous: No ventral hernias. PELVIS: Genitourinary: Bladder wall is mildly thickened circumferentially, technically age-indeterminate. Focal fat attenuation seen in the region of the uterus raising possibility of lipoleiomyoma, technically non-specific Miscellaneous: No inguinal hernias or adenopathy. Bones: No suspicious bony lesions. No vertebral body compression fractures. Diffuse degenerative disease and multilevel spondylolisthesis of lumbar spine IMPRESSION: Diffuse colonic wall thickening with adjacent inflammatory changes most likely representing infectious or inflammatory pancolitis. No abscess seen. Recommend clinical laboratory correlation. Normal appendix. Sigmoid diverticulosis however no evidence of acute diverticulitis Mild circumferential bladder wall thickening, technically age-indeterminate. Please correlate with urinalysis data. Dictated by: Denzel Serrano M.D. on 05/20/2018 at 17:33 Approved by: Denzel Serrano M.D. on 05/20/2018 at 17:38 Abdominal x-ray: Radiologist's impression: [place] [id number] XRay Report Signed Patient: Armando Fonseca EMR#: [id number] : 1945cct:[id number] Age/Sex: 73 / FDate of Service: 05/20/18 Loc: ED Accession Number: [id number] Procedure: XR acute abdomen series Ordering Provider: Maeve Edouard D.O. PROCEDURE: XR ACUTE ABDOMEN SERIES INDICATIONS: abd pain, N/V/D TECHNIQUE: One view chest and two views of the abdomen were acquired. COMPARISON: None. FINDINGS: Surgical changes and devices: None. Chest: The cardiac contours are within normal limits. The aorta demonstrates calcification and tortuosity.Heart size is normal. No pleural effusions. No pneumoperitoneum. Abdomen: Bowel gas pattern is normal. No suspicious calcifications. Visualized solid organ contours appear normal. Bones: No suspicious bony lesions. Age-appropriate bony degenerative changes are seen. IMPRESSION: A nonobstructive bowel gas pattern is seen. As clinically appropriate, please consider a repeat plain film study or a dedicated CT of the abdomen and pelvis, if the patient's symptoms persist or worsen. Dictated by: Vladimir Peraza M.D. on 05/20/2018 at 14:44 Approved by: Vladimir Peraza M.D. on 05/20/2018 at 14:45 CT scan - head: Radiologist's impression: [address] [id number] [address] Scan Report Signed Patient: Armando Fonseca EMR#: [id number] : 6Acct:[id number] Age/Sex: 73 / FDate of Service: 05/20/18 Loc: ED Accession Number: [id number] Procedure: CT head/brain wo con Ordering Provider: Jose Stoddard PROCEDURE: CT HEAD/BRAIN WO CON INDICATIONS: nausea vomiting and diarrhea with syncope TECHNIQUE: Noncontrast 4.5 mm thick angled axial sections acquired from the foramen magnum to the vertex, with coronal and sagittal reformats. For radiation dose reduction, the following was used: automated exposure control, adjustment of mA and/or kV according to patient size. COMPARISON: None. FINDINGS: Image quality: Excellent. CSF spaces: Basal cisterns are patent. No extra-axial fluid collections. The ventricles are symmetric in size and shape. Brain: No intracranial bleeds or masses. There is cerebral volume loss for age, with resultant ventricular and sulcal prominence. There are periventricular and deep white matter chronic small vessel ischemic changes. There is intracranial internal carotid artery atherosclerosis. Skull and face: Calvarium and visualized facial bones appear intact, without suspicious lesions. Sinuses: Visualized sinuses and mastoids are clear. IMPRESSION: 1. No acute intracranial process. 2. Mild to moderate atrophy and chronic microvascular ischemic changes. Dictated by: Arpita Bennett M.D. on 05/20/2018 at 17:18 Approved by: Arpita Bennett M.D. on 05/20/2018 at 17:19 ECG Data Interpretation: EKG shows normal sinus rhythm with no ST elevation or depression. No ectopy. Ventricular rate of 89. Pr interval 142. QRS duration of 89. QTC of 443 MDM Narrative Medical decision making narrative: CBC was obtained shows elevated white count of 19 K. H&H was normal. CMP shows slightly decreased GFR 54.5. Sodium of 134 and chloride Lipase was unremarkable. INR was normal. CT of the head was obtained due to a syncopal episodes and was negative. EKG shows sinus rhythm with no ST elevation or depression. Cardiac enzymes were obtained and were unremarkable. Chest x-ray was negative for any acute findings. Acute abdominal series was unremarkable. Abdomen CT was obtained and shows finding suggestive of salcedo colitis. Distal exam shows melena. discussed case with Dr. Sinha recommends admission for fluids and IV antibiotics. Discussed case with hospitalist who accepted patient. Ordered stool studies for identification of infection patient was not able to give a stool sample. Also ordered urinalysis patient was not able to give urinalysis while in the emergency room. <Hu Sanchez, DO - Last Filed: 05/20/18 23:32> Lab Data Lab Results 05/20/18 05/20/18 05/20/18 Range/Units 14:55 14:55 14:55 WBC 19.5 H (4.5-11.0) X10^3/uL RBC 4.74 (4.0-5.2) X10^6/uL Hgb 13.7 (12.0-16.0) g/dL Hct 40.9 (36-46) % MCV 86.3 (80-100) fL MCH 28.8 (26-34) PG MCHC 33.4 (30-36) % RDW 14.2 (11.6-14.8) % Plt Count 233 (150-400) X10^3/uL Neut % (Auto) 84.0 H (50-75) % Lymph % (Auto) 7.5 L (25-40) % [place] % (Auto) 8.2 (3-14) % Eos % (Auto) 0.1 L (2-4) % Baso % (Auto) 0.2 (0-2) % Neut # (Auto) 86973 H (3863-2360) /uL Lymph # (Auto) 1500 (9319-5291) /uL [place] # (Auto) 1600 H (0-900) /uL Eos # (Auto) 0 (0-450) /uL Baso # (Auto) 0 (0-100) /uL PT 11.9 (10.1-12.7) SECONDS INR 1.0 (0.9-1.3) APTT 26 L (26.4-36.2) SECONDS Sodium 134 L (137-145) mmol/L Potassium 3.8 (3.4-5.1) mmol/L Chloride 96 L (98-107) mmol/L Carbon Dioxide 24 (22-32) mmol/L BUN 21 H (7-17) mg/dL Creatinine 1.00 (0.52-1.04) mg/dL Estimated GFR 54.5 L (>60) mL/min BUN/Creatinine Ratio 21.0 (6-22) Glucose 128 H (80-110) mg/dL Calcium 10.0 (8.4-10.2) mg/dL Total Bilirubin 0.9 (0.2-1.3) mg/dL AST 32 (14-36) IU/L ALT 39 (9-52) IU/L Alkaline Phosphatase 95 (38-126) U/L Total Creatine Kinase (30-135) U/L CK-MB (CK-2) CK-MB (CK-2) Rel Index Troponin I (0.01-0.034) ng/mL Total Protein 6.7 (6.3-8.2) g/dL Albumin 4.0 (3.5-5.0) g/dL Globulin 2.7 (1.7-4.1) g/dL Albumin/Globulin Ratio 1.5 (1.0-2.8) Lipase 20 L (23-300) U/L 05/20/18 Range/Units 14:55 WBC (4.5-11.0) X10^3/uL RBC (4.0-5.2) X10^6/uL Hgb (12.0-16.0) g/dL Hct (36-46) % MCV (80-100) fL MCH (26-34) PG MCHC (30-36) % RDW (11.6-14.8) % Plt Count (150-400) X10^3/uL Neut % (Auto) (50-75) % Lymph % (Auto) (25-40) % [place] % (Auto) (3-14) % Eos % (Auto) (2-4) % Baso % (Auto) (0-2) % Neut # (Auto) (7789-8893) /uL Lymph # (Auto) (1978-6673) /uL [place] # (Auto) (0-900) /uL Eos # (Auto) (0-450) /uL Baso # (Auto) (0-100) /uL PT (10.1-12.7) SECONDS INR (0.9-1.3) APTT (26.4-36.2) SECONDS Sodium (137-145) mmol/L Potassium (3.4-5.1) mmol/L Chloride (98-107) mmol/L Carbon Dioxide (22-32) mmol/L BUN (7-17) mg/dL Creatinine (0.52-1.04) mg/dL Estimated GFR (>60) mL/min BUN/Creatinine Ratio (6-22) Glucose (80-110) mg/dL Calcium (8.4-10.2) mg/dL Total Bilirubin (0.2-1.3) mg/dL AST (14-36) IU/L ALT (9-52) IU/L Alkaline Phosphatase (38-126) U/L Total Creatine Kinase 28 L (30-135) U/L CK-MB (CK-2) TNP CK-MB (CK-2) Rel Index TNP Troponin I < 0.012 (0.01-0.034) ng/mL Total Protein (6.3-8.2) g/dL Albumin (3.5-5.0) g/dL Globulin (1.7-4.1) g/dL Albumin/Globulin Ratio (1.0-2.8) Lipase (23-300) U/L Discharge Plan Departure Patient Disposition: Admitted As Inpatient Clinical Impression: Colitis Discharge Date/Time: 05/20/18 20:40 Interventions: ED Discharge Assessment Last Done: 05/20/18 20:34 Admit Date/Time: 05/20/18 19:54 Admit Provider: Ruth Palm <Hu Sanchez DO - Last Filed: 05/20/18 23:32> Cosign ED Attending Shenaature Attestation: I was available for consultation during this patient's emergency department encounter
[2018-05-20] MEDS: CIPROFLOXACIN 400 MG/200 ML PIGGYBACK 200 MG IV (19:49)
--- NOTE | 2018-05-20 20:02 | PM.HP.1 ---
History of Present Illness Date Patient Seen: 05/20/18 Time Patient Seen: 20:02 Chief complaint: N/V/D Narrative: The patient is a 73-year-old female who presented to the ED on 05/20/2018 in the 1400 hour complaining of nausea, vomiting (x4-5 episodes, non-bloody), and diarrhea (2-3 episodes). Symptoms initially noted w/in 24 hours of ED presentation on the evening of 05/19/2018. Associated symptoms include abdominal pain, syncope, dizziness / lightheadedness, and hematochezia. Abdominal pain is generalized, does not radiate to the back or extremities. Developed shortly after eating a meal. + guaiac per rectal exam in the ED. No prior history of a GI bleed. Admits to using ibuprofen 400 mg thrice weekly. Patient has had a colonoscopy 1.5 years ago status post polypectomy with no acute findings and recommended follow-up of 5 years. Over the past 24 hr diminished appetite and fluid intake. Reports weight loss of 12 lb in the past 3 months. Denies fever and chills. No other acute GI disorders or known autoimmune gastropathy. In regard to syncope. Each episode occurred while patient was sitting on the toilet. Recent port total of 3 episodes. Each involve loss of consciousness that was brief, less than a minute by report. Denies injury to the head. No prior cardiac history. Feeling dizzy and lightheaded prior to syncopal events. No chest pain, palpitations, or dyspnea at rest / with exertion. PMH: HTN, hypothyroidism, dyslipidemia, asthma, allergic rhinitis, diverticulosis, DDD / multi-level spondylolisthesis (lumbar spine), OA (left knee), h/o left menisci tear (2014) PSH: left TKA (04/2015), colonoscopy (11/26/2016, sigmoid colon polyp (bx, tubular ademona) / diverticulosis / extremely torturous and redundant colon) FHx: Mother and father, , no known health concerns. SHx: Denies history of tobacco, alcohol, and recreational drug use. lives with and son. ED Work-Up Initial VS: BP 109-43 mmHg, HR 82, RR 20, SpO2 98% RA, T 98.2F Labs: WBC19.5, Hgb 13.7, Plt 233, Na 134, K 3.8, Cl 96, BUN 21, Cr 1.0, Glu 128, liver fx WNL, PT / INR 11.9 / 1.0, Trop WNL Head CT: No acute intracranial process. Mild to moderate atrophy and chronic microvascular ischemic changes. XR Chest / Abdomen: A non-obstructive bowel gas pattern. CT A/P: Abdomen, diffuse colonic wall thickening primarily involving the transverse distal colon with mild adjacent plantar fat stranding. There is trace fluid in stranding seen within the left pericolic gutter. Suspected infectious or inflammatory pancolitis. Numerous sigmoid colonic diverticula without definite acute diverticulitis. Pelvis, Mild circumferential bladder wall thickening, correlate with urinalysis. Patient History Social History household members: spouse and family Smoking Status: Never smoker alcohol intake: never Family & Social History Safety & Behavioral: Feels Safe in Current Yes Environment Been Physically Hurt or No Threatened By a Person Tobacco & Substance use: Smoking Status Never smoker Substance Use Type does not use Meds Home Medications Medication Instructions Recorded Confirmed Type albuterol sulfate [ProAir HFA] 1 puff INHALATION PRN PRN 05/20/18 05/20/18 History cholecalciferol (vitamin D3) 2,000 unit PO DAILY 05/20/18 05/20/18 History [Vitamin D3] diltiazem HCl 180 mg PO BID 05/20/18 05/20/18 History fluticasone-salmeterol [Advair 1 puff INHALATION BID PRN 05/20/18 05/20/18 History Diskus] lisinopril-hydrochlorothiazide 1 tab PO DAILY 05/20/18 05/20/18 History loratadine 10 mg PO DAILY 05/20/18 05/20/18 History montelukast 10 mg PO QPM 05/20/18 05/20/18 History naproxen 500 mg PO BID 05/20/18 05/20/18 History simvastatin 20 mg PO DAILY 05/20/18 05/20/18 History Allergies Allergy/AdvReac Type Severity Reaction Status Date / Time Tetanus Vaccines and Toxoid Allergy Severe SWELLING Verified 03/05/18 18:07 [TETANUS VACCINES & TOXOID] AT THE SITE kira G-Fred 20 [From [facility]] Allergy Unknown CAUSES Verified 03/05/18 18:07 PAIN, SWELLING, NSTABILITY Review of Systems Review of Systems All systems reviewed & are unremarkable except as noted in HPI and below Exam Vital Signs (past 8 hours): - 05/20/18 14:40 Temperature 98.2 F Pulse Rate 82 Respiratory Rate 20 Blood Pressure 109/43 L Pulse Oximetry 98 Oxygen Delivery Method Room Air Narrative Exam Narrative: Constitutional: NAD Neurologic: AOx3, no focal neurological deficits Head: NC, AT Eyes: PERRL, EOMI, Ears: external ears normal, no otorrhea Nose: external nose normal, no rhinorrhea or epistaxis Throat: MMM, oropharynx w/o exudate Neck: no masses, lymphadenopathy, or JVD Chest / Respiratory: equal chest rise, unlabored respiratory effort, no tachypnea, diminished in the bases Heart / CV: S1S2, no murmur Abdomen / GI: round, generalized tenderness, ND, + BS, no organomegaly : no suprapubic tenderness, no CVA Peripheral / Vascular: warm to touch, DP and PT pulses palpable, no edema Musc: full ROM of upper and lower extremities, adequate muscle tone and bulk Skin: no ecchymosis or suspicious lesions / ulcers Objective Labs Result Diagrams: 05/20/18 14:55 05/20/18 14:55 Labs: Laboratory Results - last 24 hr 05/20/18 05/20/18 05/20/18 14:55 14:55 14:55 WBC 19.5 H RBC 4.74 Hgb 13.7 Hct 40.9 MCV 86.3 MCH 28.8 MCHC 33.4 RDW 14.2 Plt Count 233 Neut % (Auto) 84.0 H Lymph % (Auto) 7.5 L [place] % (Auto) 8.2 Eos % (Auto) 0.1 L Baso % (Auto) 0.2 Neut # (Auto) 09305 H Lymph # (Auto) 1500 [place] # (Auto) 1600 H Eos # (Auto) 0 Baso # (Auto) 0 PT 11.9 INR 1.0 APTT 26 L Sodium 134 L Potassium 3.8 Chloride 96 L Carbon Dioxide 24 BUN 21 H Creatinine 1.00 Estimated GFR 54.5 L BUN/Creatinine Ratio 21.0 Glucose 128 H Calcium 10.0 Total Bilirubin 0.9 AST 32 ALT 39 Alkaline Phosphatase 95 Total Creatine Kinase CK-MB (CK-2) CK-MB (CK-2) Rel Index Troponin I Total Protein 6.7 Albumin 4.0 Globulin 2.7 Albumin/Globulin Ratio 1.5 Lipase 20 L 05/20/18 14:55 WBC RBC Hgb Hct MCV MCH MCHC RDW Plt Count Neut % (Auto) Lymph % (Auto) [place] % (Auto) Eos % (Auto) Baso % (Auto) Neut # (Auto) Lymph # (Auto) [place] # (Auto) Eos # (Auto) Baso # (Auto) PT INR APTT Sodium Potassium Chloride Carbon Dioxide BUN Creatinine Estimated GFR BUN/Creatinine Ratio Glucose Calcium Total Bilirubin AST ALT Alkaline Phosphatase Total Creatine Kinase 28 L CK-MB (CK-2) TNP CK-MB (CK-2) Rel Index TNP Troponin I < 0.012 Total Protein Albumin Globulin Albumin/Globulin Ratio Lipase Assessment & Plan Plan Narrative: Pancolitis - Dr. Sinha notified in ED, will see patient in am - Started on ciprofloxacin and metronidazole - Supportive care - CBC, BMP, Mg in am Hematochezia, present on admission, acute Guaiac positive. No other active s/s of blood loss. HGB 13.7 - Trend hemoglobin, CBC in am Syncope, present on admission Likely in the setting of volume depletion and potential GI bleed / vasovagal response CXR unremarkable. Troponin negative. - Telemetry - IV fluid resuscitation - Trend Hgb - Echocardiogram in am Nausea and vomiting and diarrhea, acute, controlled with antiemetics - Antiemetics - NPO, ice chips okay, consider advancing diet in a.m. - GI panel, ordered in the ED, pending Volume depletion Multifactorial, secondary to GI and renal losses (on a diuretic) - IV fluids - Routine AM labs, replete electrolytes accordingly Essential hypertension, chronic condition, present on admission, stable Hold [employer] anti-hypertensives in the setting of hypovolemia and potential lower GIB Asthma, present on admission, chronic condition, stable - No acute exacerbation. Resume PT A regimen.
[2018-05-20 20:25] VITALS: BP 125/58; PULSE 80; RESP 23; O2SAT 91
[2018-05-20 20:34] VITALS: BP 125/60; PULSE 87; RESP 18; O2SAT 98
[2018-05-20 20:50] VITALS: BP 123/61; PULSE 81; RESP 18; TEMP 36.9; O2SAT 97
[2018-05-20 21:31] VITALS: BMI 30.5
[2018-05-20] MEDS: SODIUM CHLORIDE 0.9% 1,000 ML 100 ML IV (21:55)
[2018-05-20] MEDS: metroNIDAZOLE 500 MG/100 ML PIGGYBACK 100 MG IV (21:55)
[2018-05-20 22:06] VITALS: O2SAT 95
--- NOTE | 2018-05-20 22:50 | PC.NURSE ---
Pt transferred from ED via bed; IV fluids and abx initiated; Pt denies N/V and pain; O2 RA=95%, ls clear; BTs hyperactive; pt instructed regarding call light, and high fall risk r/t syncope; VSS; UA ordered, pt has not voided as of 2299, supplies in room; pt declines calf-SCDs
[2018-05-21] VITALS (12 sets, daily range): BP systolic 113–132; BP diastolic 49–92; PULSE 69–86; RESP 15–18; TEMP 36.9–37.4; O2SAT 94–100
[2018-05-21] MEDS: metroNIDAZOLE 500 MG/100 ML PIGGYBACK 100 MG IV ×3 (04:04→20:04)
--- NOTE | 2018-05-21 05:54 | PC.NURSE ---
Pt is AxOx3, VSS, tolerating room air. No complaints of pain. No nausea, vomiting, or diarrhea. UA sent, urine is dominik and clear. Ambulates independently. NS@100mL/hr continued. IV ABX cont'd. NPO with ice chips. Tele is NSR. No complaints of dizziness.
[2018-05-21 06:16] LABS: Appearance Urine UA CLEAR; Bacteria Urine None Seen; Bilirubin Urine UA NEGATIVE (NEGATIVE); Color Urine UA YELLOW; Glucose Urine UA NEGATIVE (Negative); Ketones Urine UA NEGATIVE (NEGATIVE); Leukocyte Esterase Urine UA NEGATIVE (NEGATIVE); Nitrite Urine UA NEGATIVE (Negative); Occult Blood Urine UA NEGATIVE (Negative); Protein Urine UA NEGATIVE (Negative); RBC Urine None Seen (0-5/HPF); WBC Urine None Seen (0-5/HPF); pH Urine UA 6.5 (4.5-8.0)
[2018-05-21 06:17] LABS: Culture Indicated Urine Cult Not Indicated; Squamous Epithelial Cell Urine 0-1 /HPF; Urine Comments Microscopic Normal
[2018-05-21 07:39] LABS: BUN Creatinine Ratio 21.3 (6-22); Blood Urea Nitrogen 17 mg/dL (7-17); Calcium 9.1 mg/dL (8.4-10.2); Carbon Dioxide 25 mmol/L (22-32); Chloride 102 mmol/L (98-107); Estimated Glomerular Filt Rate > 60.0 mL/min (>60); Glucose 106 mg/dL (80-110); HEMOLYSIS < 15 (0-50); Magnesium 1.8 mg/dL (1.6-2.3); Potassium 3.9 mmol/L (3.4-5.1); Sodium 134 mmol/L (137-145)
--- NOTE | 2018-05-21 08:29 | P.PN_ITS ---
Subjective Interval history: Patient states that she feels slightly better still has some abdominal discomfort but no nausea vomiting at this time Exam Vital Signs (past 8 hours): - 05/21/18 01:07 05/21/18 02:00 05/21/18 04:24 Temperature 98.4 F 98.8 F Pulse Rate 69 80 Respiratory Rate 15 17 Blood Pressure 122/49 L 113/92 H Pulse Oximetry 98 98 99 05/21/18 06:00 Temperature Pulse Rate Respiratory Rate Blood Pressure Pulse Oximetry 98 Oxygen Delivery Method Room Air Oxygen Flow Rate 0 Narrative Exam Narrative: Constitutional: NAD Neurologic: AOx3, no focal neurological deficits Head: NC, AT Eyes: PERRL, EOMI, Nose: external nose normal Throat: MMM, oropharynx w/o exudate Neck: no masses, lymphadenopathy, or JVD Chest / Respiratory: equal chest rise, unlabored respiratory effort, no tachypnea, diminished in the bases Heart / CV: S1S2, no murmur Abdomen / GI: rotund minimal to mild generalized tenderness, ND, + BS, no organomegaly : no suprapubic tenderness, no CVA Peripheral / Vascular: warm to touch, DP and PT pulses palpable, no edema Musc: full ROM of upper and lower extremities, adequate muscle tone and bulk Skin: no ecchymosis or suspicious lesions / ulcers Objective Labs Result Diagrams: 05/21/18 08:50 05/21/18 07:18 Labs: Laboratory Results - last 24 hr 05/20/18 05/20/18 05/20/18 14:55 14:55 14:55 WBC 19.5 H RBC 4.74 Hgb 13.7 Hct 40.9 MCV 86.3 MCH 28.8 MCHC 33.4 RDW 14.2 Plt Count 233 Neut % (Auto) 84.0 H Lymph % (Auto) 7.5 L [place] % (Auto) 8.2 Eos % (Auto) 0.1 L Baso % (Auto) 0.2 Neut # (Auto) 51315 H Lymph # (Auto) 1500 [place] # (Auto) 1600 H Eos # (Auto) 0 Baso # (Auto) 0 PT 11.9 INR 1.0 APTT 26 L Sodium 134 L Potassium 3.8 Chloride 96 L Carbon Dioxide 24 BUN 21 H Creatinine 1.00 Estimated GFR 54.5 L BUN/Creatinine Ratio 21.0 Glucose 128 H Calcium 10.0 Magnesium Total Bilirubin 0.9 AST 32 ALT 39 Alkaline Phosphatase 95 Total Creatine Kinase CK-MB (CK-2) CK-MB (CK-2) Rel Index Troponin I Total Protein 6.7 Albumin 4.0 Globulin 2.7 Albumin/Globulin Ratio 1.5 Lipase 20 L Urine Color Urine Appearance Urine pH Ur Specific [place] Urine Protein Urine Glucose (UA) Urine Ketones Urine Occult Blood Urine Nitrate Urine Bilirubin Urine Urobilinogen Ur Leukocyte Esterase Urine RBC Urine WBC Ur Squamous Epith Cells Urine Bacteria Ur Culture Indicated? Micro UA Comment 05/20/18 05/21/18 05/21/18 14:55 04:15 07:18 WBC RBC Hgb Hct MCV MCH MCHC RDW Plt Count Neut % (Auto) Lymph % (Auto) [place] % (Auto) Eos % (Auto) Baso % (Auto) Neut # (Auto) Lymph # (Auto) [place] # (Auto) Eos # (Auto) Baso # (Auto) PT INR APTT Sodium 134 L Potassium 3.9 Chloride 102 Carbon Dioxide 25 BUN 17 Creatinine 0.80 Estimated GFR > 60.0 BUN/Creatinine Ratio 21.3 Glucose 106 Calcium 9.1 Magnesium 1.8 Total Bilirubin AST ALT Alkaline Phosphatase Total Creatine Kinase 28 L CK-MB (CK-2) TNP CK-MB (CK-2) Rel Index TNP Troponin I < 0.012 Total Protein Albumin Globulin Albumin/Globulin Ratio Lipase Urine Color Yellow Urine Appearance Clear Urine pH 6.5 Ur Specific [place] 1.010 Urine Protein Negative Urine Glucose (UA) Negative Urine Ketones Negative Urine Occult Blood Negative Urine Nitrate Negative Urine Bilirubin Negative Urine Urobilinogen 1.0 Ur Leukocyte Esterase Negative Urine RBC None seen Urine WBC None seen Ur Squamous Epith Cells 0-1 /hpf Urine Bacteria None seen Ur Culture Indicated? Cult not indicated Micro UA Comment Microscopic normal Assessment & Plan Assessment Narrative: 1. Pancolitis - Dr. Sinha was notified in ED and he has seen the patient. Recommends c iprofloxacin and metronidazole as ordered - Started on ciprofloxacin and metronidazole - Supportive care - CBC, BMP, Mg in am 2. Hematochezia, present on admission, acute Guaiac positive. No other active s/s of blood loss. HGB 13.7 - Trend hemoglobin, CBC in am 3. Syncope, present on admission Likely in the setting of volume depletion and potential GI bleed / vasovagal response CXR unremarkable. Troponin negative. - Telemetry - IV fluid resuscitation - Trend Hgb - follow-up Echocardiogram 4. Nausea and vomiting and diarrhea, acute, controlled with antiemetics - Antiemetics - NPO, ice chips okay, consider advancing diet in a.m. 5. Volume depletion Multifactorial, secondary to GI and renal losses (on a diuretic) - IV fluids - Routine AM labs, replete electrolytes accordingly 6. Essential hypertension, chronic condition, present on admission, stable Hold home anti-hypertensives in the setting of hypovolemia and potential lower GIB 7. Asthma, present on admission, chronic condition, stable - No acute exacerbation. Resume home regimen. Quality VTE Deep Vein Thrombosis/Pulmonary Embolism Present on Admission: No
[2018-05-21 09:01] LABS: Add Manual Diff / Slide Review NO; Basophils Absolute Auto 100 /uL (0-100); Basophils Percent Auto 0.3 % (0-2); Eosinophils Absolute Auto 0 /uL (0-450); Eosinophils Percent Auto 0.2 % (2-4); Hematocrit 35.9 % (36-46); Lymphocytes Absolute Auto 2000 /uL (1100-4500); Lymphocytes Percent Auto 12.8 % (25-40); Mean Corpuscular HGB Conc 33.3 % (30-36); Monocytes Absolute Auto 1200 /uL (0-900); Monocytes Percent Auto 7.9 % (3-14); Neutrophils Absolute Auto 12400 /uL (1500-7000); Neutrophils Percent Auto 78.8 % (50-75); Platelet Count 192 X10^3/uL (150-400); Red Blood Cell Count 4.13 X10^6/uL (4.0-5.2); Red Cell Distribution Width 14.6 % (11.6-14.8); White Blood Cell Count 15.8 X10^3/uL (4.5-11.0)
[2018-05-21] MEDS: SODIUM CHLORIDE 0.9% 1,000 ML 100 ML IV (10:01)
[2018-05-21] MEDS: CHOLECALCIFEROL (VITAMIN D3) 1,000 UNIT TABLET 2000 UNIT PO (10:03)
[2018-05-21] MEDS: LORATADINE 10 MG TABLET PO (10:03)
[2018-05-21] MEDS: CIPROFLOXACIN 400 MG/200 ML PIGGYBACK 200 MG IV ×2 (10:47→22:52)
--- NOTE | 2018-05-21 11:36 | CM.DANOTE ---
Patient is a 73 year old female who was admitted on 05/20/18 for N/V/D. Pt has [facility] and [employer] for insurance and her PCP is Dr. Nicky Vinson. EMR was reviewed. Per , G.I. Consult today and pt was NPO until consult. Per RN, per Vidya.I. Consult putting pt on full liquid diet to determine if pt can tolerate and pt has not eaten much so far today. SW met bedside with pt and explained role and updated white board and pt confirms that she lives at home with her spouse in [place] and her adult son recently moved in with them and provides assist around the house like shoveling snow and helping with any needs. Pt is typically independent with ADL's at baseline and denies any hx of HH or SNF. Pt preference is to d/c home via spouse POV when medically stable. Pt does not anticipate any SW needs. Plan: SW to follow closely to determine if pt tolerates liquid diet before progressing diet to solids. SW to follow for any further identified d/c planning needs. VIVIAN Ennis Discharge Planning/Care Management CM Discharge Assessment Start: 05/21/18 11:34 Freq: Status: Active Protocol: Document 05/21/18 11:34 BF (Rec: 05/21/18 11:36 BF [id number]) Discharge Planning Assessment Assigned Home Housekeeper VIVIAN Giordano DPOA/Assigned Designee Name none Advance Directives? Yes History Provided By Patient Medical Record Has Patient been admitted in last 30 No days? Prior Living Arrangements House Household Members spouse family Type of transporation used prior to Drives own vehicle admit Comment Lives at home with spouse and adult son currently helping around the house. Independent with ADL's Yes Is patient alert and oriented? Yes Caregiver for Another No Comment Waiting to determine if pt can tolerate full liquid diet Barriers to Discharge No Discharge Plan Home Transportation Arrangement Likely spouse or adult son can provide transport at d/c. Referrals Initiated None needed Whiteboard Updated in Patient Room with Yes name and ext. # of Home Housekeeper Review Status In Process Please Provide Date Initial DC 05/21/18 Assessment Was Performed Next Review Type Continued Stay Review
--- NOTE | 2018-05-21 14:01 | PC.NURSE ---
Day Shift- Pt A&OX4, cooperative, able to make needs known using call light. Rates 3-4/10 abd cramping intermittent to LUQ Abd and slight tenderness. Pt had a few bites of applesauce this AM with ice water and shortly after had diarrhea, no sample obtained at that time. 2nd attempt of collected stool sample had a large amount of urine contamination. Denied nausea. Tolerated small amounts of lunch. Jello, soup, juice. IVF remain infusing to right wrist PIV. No other voiced concerns.
[2018-05-21] MEDS: MONTELUKAST 10 MG TABLET PO (20:04)
[2018-05-21] MEDS: SIMVASTATIN 20 MG TABLET PO (20:04)
[2018-05-22] VITALS (10 sets, daily range): BP systolic 128–140; BP diastolic 62–74; PULSE 71–85; RESP 16–20; TEMP 36.8–37.2; O2SAT 97–100
[2018-05-22] MEDS: SODIUM CHLORIDE 0.9% 1,000 ML 100 ML IV (01:28)
--- NOTE | 2018-05-22 01:59 | PC.NURSE ---
Addendum entered by Irlanda Stokes R.N. 05/22/18 06:42: Slept most of shift. No complaints of pain. Original Note: Patient is alert and oriented. Breath sounds CTA with RA sat of 99%. HRR; on telemetry and was last recorded as SR. Denies nausea. BT present and abdomen is soft but some tenderness in left quads. Has had no stools as yet this shift. Denies dysuria, frequency or urgency; urine is dark dominik. Independent with bed mobility. When out of bed receives SBA due to recent fall. Denies pain. Fall risk score is moderate; bed alarm is activated. Refusing SCD's.
[2018-05-22] MEDS: metroNIDAZOLE 500 MG/100 ML PIGGYBACK 100 MG IV ×2 (04:21→14:43)
[2018-05-22 06:41] LABS: BUN Creatinine Ratio 14.3 (6-22); Blood Urea Nitrogen 10 mg/dL (7-17); Calcium 9.1 mg/dL (8.4-10.2); Carbon Dioxide 23 mmol/L (22-32); Chloride 105 mmol/L (98-107); Estimated Glomerular Filt Rate > 60.0 mL/min (>60); Glucose 87 mg/dL (80-110); HEMOLYSIS < 15 (0-50); Potassium 3.5 mmol/L (3.4-5.1); Sodium 136 mmol/L (137-145)
--- NOTE | 2018-05-22 08:27 | PM.PN.1 ---
Exam Vital Signs (past 8 hours): - 05/22/18 04:25 Temperature 98.2 F Pulse Rate 85 Respiratory Rate 20 Blood Pressure 128/67 Pulse Oximetry 97 Oxygen Delivery Method Room Air Oxygen Flow Rate 0 Objective Labs Result Diagrams: 05/21/18 08:50 05/22/18 06:09 Labs: Laboratory Results - last 24 hr 05/21/18 05/22/18 08:50 06:09 WBC 15.8 H RBC 4.13 Hgb 12.0 Hct 35.9 L MCV 87.0 MCH 29.0 MCHC 33.3 RDW 14.6 Plt Count 192 Neut % (Auto) 78.8 H Lymph % (Auto) 12.8 L [place] % (Auto) 7.9 Eos % (Auto) 0.2 L Baso % (Auto) 0.3 Neut # (Auto) 36193 H Lymph # (Auto) 2000 [place] # (Auto) 1200 H Eos # (Auto) 0 Baso # (Auto) 100 Sodium 136 L Potassium 3.5 Chloride 105 Carbon Dioxide 23 BUN 10 Creatinine 0.70 Estimated GFR > 60.0 BUN/Creatinine Ratio 14.3 Glucose 87 Calcium 9.1 Quality VTE Deep Vein Thrombosis/Pulmonary Embolism Present on Admission: No
[2018-05-22] MEDS: CHOLECALCIFEROL (VITAMIN D3) 1,000 UNIT TABLET 2000 UNIT PO (09:31)
[2018-05-22] MEDS: LORATADINE 10 MG TABLET PO (09:32)
[2018-05-22] MEDS: CIPROFLOXACIN 400 MG/200 ML PIGGYBACK 200 MG IV (12:22)
--- NOTE | 2018-05-22 13:42 | CM.DPC ---
DCP/cont Patient had questions regarding OBS vs IP. Patient is currently OBS. Reviewed LANGE that UR nurse provided patient, with patient and answered all questions. Patient is hopeful to discharge home today. Per Hospitalist, should patient tolerate her meal discharge home is likely. Patient has a neighbor that will nut picker patient. She has no concerns at this time. Plan: Discharge home when patient is able to tolerate diet. SW to follow for any further identified d/c planning needs.
--- NOTE | 2018-05-22 16:40 | PC.NURSE ---
Addendum entered by Mary Allan R.N. 05/22/18 18:08: Pt D/C instructions reviewed and RX given. Pt D/C home w/family in stable condition. Original Note: Addendum entered by Mary Allan R.N. 05/22/18 17:40: Pt will be discharged home. RX filled. HL and Tele D/C. Awaiting ride. Original Note: Pt sitting in chair. Denies discomfort. IVF infusing into the LFA via pump as per orders. Tele showing NSR per ICU staff. Call light w/in reach.
--- NOTE | 2018-05-22 16:59 | PM.DS.1 ---
History of Present Illness Chief complaint: N/V/D Narrative: The patient is a 73-year-old female who presented to the ED on 05/20/2018 in the 1400 hour complaining of nausea, vomiting (x4-5 episodes, non-bloody), and diarrhea (2-3 episodes). Associated symptoms include abdominal pain, syncope, dizziness / lightheadedness, and hematochezia. Abdominal pain is generalized, does not radiate to the back or extremities. Developed shortly after eating a meal. + guaiac per rectal exam in the ED. No prior history of a GI bleed. Admits to using ibuprofen 400 mg thrice weekly. Patient has had a colonoscopy 1.5 years ago status post polypectomy with no acute findings and recommended follow-up of 5 years. Over the past 24 hr diminished appetite and fluid intake. Reports weight loss of 12 lb in the past 3 months. Denies fever and chills. No other acute GI disorders or known autoimmune gastropathy. In regard to syncope. Each episode occurred while patient was sitting on the toilet. Each involve loss of consciousness that was brief, less than a minute by report. Denies injury to the head. No prior cardiac history. Feeling dizzy and lightheaded prior to syncopal events. No chest pain, palpitations, or dyspnea at rest / with exertion. Discharge Providers Date of admission: 05/20/18 19:54 Primary care physician: Nicky Vinson DO Consults: 05/20/18 20:22 Consult to Discharge Planning Routine Comment: 05/21/18 07:44 Consult to General Surgery Routine Comment: Consulting Provider: Allen Sinha Reason for consultation: Pancolitis, hematochezia Has provider been notified: Yes Discharge provider: Conrad Anderson MD Discharge Date: 05/22/18 Summary Discharge Diagnosis: 1. Colitis 2. Syncope secondary to Valsalva maneuver most likely 3. Hematochezia probably secondary to proctitis from diarrhea 4.. Hypertension 5. Hypothyroidism 6. Asthma 7. Diverticulosis Hospital Course: The patient was admitted to the hospital her initial WBC was 19.5. CT of abdomen and pelvis revealed changes felt related to infectious or inflammatory pancolitis. There is no abscess is seen. She was placed on IV Flagyl and Cipro. With this her abdominal pain nausea vomiting resolved Her syncope was felt secondary to Valsalva maneuver from having a bowel movement. She had no further episodes during her hospitalization her instructor adjunct pharmacy technician was negative. Additionally she had CT of the head which was no acute On the day of discharge she was afebrile hemodynamically stable tolerating full diet. There was no nausea or vomiting or increased pain when eating. She was therefore felt stable and ready for discharge and will be continued on ciprofloxacin and Flagyl p.o. for total of 7 additional days Status at Discharge Cognitive/behavioral status at discharge: She was cognitively intact at discharge Functional status at discharge: independent ambulation Time Spent with Patient Greater than 30 minutes Exam Vital Signs (past 8 hours): - 05/22/18 12:00 05/22/18 12:12 05/22/18 15:20 Temperature 98.2 F 98.4 F Pulse Rate 71 73 Respiratory Rate 20 16 Blood Pressure 136/74 140/62 Pulse Oximetry 98 100 100 05/22/18 16:00 Temperature Pulse Rate Respiratory Rate Blood Pressure Pulse Oximetry 97 Fraction of Inspired Oxygen 21 Oxygen Delivery Method Room Air Oxygen Flow Rate 0 Narrative Exam Narrative: General. NAD Abdomen/GI. Rotund nontender bowel sounds present Neurologic awake alert oriented x3 shows grossly non focal mood and affect were normal Objective Labs Result Diagrams: 05/21/18 08:50 05/22/18 06:09 Labs: Laboratory Results - last 24 hr 05/22/18 06:09 Sodium 136 L Potassium 3.5 Chloride 105 Carbon Dioxide 23 BUN 10 Creatinine 0.70 Estimated GFR > 60.0 BUN/Creatinine Ratio 14.3 Glucose 87 Calcium 9.1 Discharge Plan Discharge Plan Patient Disposition: Home Discharge Med Rec/Prescriptions Prescriptions: New metronidazole 500 mg Tablet 500 mg PO TID Qty: 21 RF: 0 ciprofloxacin HCl [Cipro] 500 mg Tablet 500 mg PO BID Qty: 14 RF: 0 Continued fluticasone-salmeterol 250-50 mcg/dose blister with device 1 puff Inhalation BID PRN (Reason: Shortness Of Breath) RF: 0 diltiazem HCl 180 mg capsule,extended release 24 hr 180 mg PO BID RF: 0 lisinopril-hydrochlorothiazide 20-12.5 mg tablet 1 tab PO DAILY RF: 0 simvastatin 20 mg tablet 20 mg PO DAILY RF: 0 montelukast 10 mg tablet 10 mg PO QPM RF: 0 albuterol sulfate 90 mcg/actuation HFA aerosol inhaler 1 puff Inhalation PRN PRN (Reason: Shortness Of Breath) RF: 0 loratadine 10 mg tablet 10 mg PO DAILY RF: 0 naproxen 500 mg tablet 500 mg PO BID RF: 0 cholecalciferol (vitamin D3) [Vitamin D3] 2,000 unit Capsule 2,000 unit PO DAILY RF: 0 Follow up/Referrals: Nicky Vinson DO [Primary Care Provider] - Provider Discharge Instructions Diet: Diet as Tolerated Activity: As tolerated Skin/Wound/Dressing Care Report to your healthcare provider any signs of infection, such as:: chills, fever and increased pain Visit Report/Discharge Packet Instructions: How to Prevent Falls Visit Report Forms: Stroke Signs & Symptoms Discharge Data Primary Care Provider: Nicky Vinson Attending Provider: Ruth Palm Admit Date/Time: 05/20/18 19:54 Discharges patient from system. Discharge Date/Time: 05/22/18 18:08 Quality VTE Deep Vein Thrombosis/Pulmonary Embolism Present on Admission: No
--- NOTE | 2018-05-23 12:22 | PN_ITS ---
DATE OF SERVICE: 05/22/2018 SUBJECTIVE: Patient has been in the hospital now for 36 hours, came in with colitis. Rosas colitis noted on CT scanning. Since she's been here, she's had minimal abdominal pain. Today she has no abdominal pain. Has been on IV antibiotic therapy including Flagyl and Cipro. OBJECTIVE: Today on exam, she is afebrile. Abdomen is soft, nondistended. No tenderness. IMPRESSION: The patient has been tolerating a full liquid diet, has been advanced to a soft diet. She's not having diarrhea. She had a stool yesterday but not today. My impression is that she had an acute infectious type of colitis. We have cultures pending. We have not identified any pathogen such as C difficile at this point, and she is on the Hospitalist service, so she may be able to be discharged later today if she tolerates her diet and follow up with her medical doctor. She, at this point, does not have any surgical condition. Armando Fonseca - Juany/kaiser doc#: [id number]/job#: [id number] dd: 05/22/2018 11:48:00 dt: 05/23/2018 12:16:00 DICTATING /COPIES TO: Allen Sinha MD COPIES MNE: EL
== END 2018-05-22 18:08 | disposition home or self-care (01) ==
LOC: ED 19:33 → AC 05-21 11:07
PROVIDERS: Emergency Medicine; Admitting Provider Nurse Practitioner Gerontology; Emergency Provider Nurse Practitioner Family; PCP Family Medicine; Visit Provider Nurse Practitioner Gerontology
DX: K52.9 Noninfective gastroenteritis and colitis, unspecified (principal); R11.2 Nausea with vomiting, unspecified; E86.9 Volume depletion, unspecified; I10 Essential (primary) hypertension; E03.9 Hypothyroidism, unspecified; J45.909 Unspecified asthma, uncomplicated; R55 Syncope and collapse; K92.1 Melena; K57.30 Diverticulosis of large intestine without perforation or abscess without bleeding
CPT/HCPCS: 36415; 70450; 74022; 74177; 80048; 80053; 81001; 82550; 83690; 83735; 84484; 85025; 85610; 85730; 93005; 94760; 96361; 96365; 96375; 99225; 99283; 99285; G0378; J0744; J2405; Q9967